=== PATIENT | male | born 1945 | race Caucasian/White ===

== ENCOUNTER 2018-12-12 13:52 | Inpatient (IN) ==
--- NOTE | 2018-12-12 14:03 | Emergency Department Note ---
Back Pain HPI - General Chief Complaint: Back Pain/Injury Stated Complaint: Back Pain; Recent back surgery. Time Seen by Provider: 12/12/18 14:01 Source: patient, family Limitations: no limitations - History of Present Illness HPI Narrative: This pleasant gentleman is on chronic medication for anticoagulation due to a [employer] Guido's valve that was somewhere 10+ years ago. He also had an aortic aneurysm that was repaired. This was at [facility]. Recently had a hematoma develop and was in [facility] for evacuation of the hematoma 13 days ago. Yesterday had an INR of 2.4 with the goal being 2.5-3.5 but he has had increasing pain in the past 2 days. He is now having to take hydrocodone 10 mg every 2 hours were usually he had been 4-6 and even 6 to 8 hours in between. Pain goes into the groin as well as some paresthesias into the thighs but the left is much worse than the right with burning. He was able to dorsiflex his ankles previously but has had decrease in ability and dragging of foot on the left. He has been unable to walk. He was seen by [facility] today and an MRI showed a return of a significant/quite large epidural hematoma. He is being scheduled for intervention this evening and is being admitted under the hospitalist. Reported to me is that this has already transpired as far as excepting this patient and fresh frozen plasma and other orders are already being created and in place. REVIEW OF SYSTEMS: Unable to obtain much except through his who reports that he has not had fevers, chills, sweats, chest pain, shortness of breath, nausea or vomiting but he has been quite out of it due to the narcotics and needing to be used so much more often. - Related Data Home Medications Medication Instructions Recorded Confirmed Cortef PO 05/20/15 10/07/17 Coumadin PO 05/20/15 10/07/17 fenofibrate nanocrystallized 145 145 mg PO QDAY 05/20/15 10/07/17 mg tablet fludrocortisone 0.1 mg tablet 0.1 mg PO QDAY 05/20/15 10/07/17 hydrocodone 10 mg-acetaminophen 1 tab PO TID 05/20/15 10/07/17 325 mg tablet levothyroxine 150 mcg tablet 150 mcg PO QDAY tab 05/20/15 10/07/17 lisinopril 10 1 tab PO QDAY 05/20/15 10/07/17 mg-hydrochlorothiazide 12.5 mg tablet simvastatin 80 mg tablet 40 mg PO QDAY tab 05/20/15 10/07/17 hydrocortisone PO 10/06/16 10/07/17 Allergies Allergy/AdvReac Type Severity Reaction Status Date / Time Amoxicillin [From Augmentin] Allergy Unknown unknown Verified 05/21/15 08:23 clavulanic acid Allergy Unknown unknown Verified 05/21/15 08:23 [From Augmentin] escitalopram [From Lexapro] Allergy Unknown unknown Verified 05/21/15 08:23 Past Medical History - Social History smoking status: Never smoker Physical Exam Limitations: no limitations General appearance: sleepy, other (Resting peacefully but with the left thigh and knee bent.) Head: atraumatic, normocephalic Eye: Present: EOMI Neck: Present: trachea midline. Absent: lymphadenopathy, thyromegaly Chest: Present: symmetric chest wall rise Respiratory: Present: normal lung sounds bilaterally. Absent: respiratory distress, wheezes, stridor, accessory muscle use, prolonged expiratory phase Cardiovascular: Present: regular rate, normal rhythm, other (Fairly loud click compatible with [employer]. Guido's for the S2.). Absent: systolic murmur, diastolic murmur Abdominal: Present: soft. Absent: distention, tenderness, guarding, rebound, rigidity, organomegaly, mass Extremities: Absent: pedal edema, pretibial edema, calf tenderness Neurological: Present: CN II-XII intact, other (Is arousable when spoken to her touch but easily falls back asleep.) Psychiatric: Present: flat affect, serious, other (Sleepy.) Skin: Present: warm, dry Course Vital Signs Temperature 98.3 F 12/12/18 13:53 Pulse Rate 89 12/12/18 13:53 Respiratory Rate 12/12/18 13:53 Blood Pressure 181/103 12/12/18 13:53 Pulse Oximetry (%) 96 12/12/18 13:53 Temperature 98.3 F 12/12/18 13:53 Pulse Rate 88 12/12/18 14:13 Respiratory Rate 22 12/12/18 13:53 Blood Pressure 171/91 12/12/18 14:13 Pulse Oximetry (%) 94 12/12/18 14:13 Disposition 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 Disposition: Xfer As Inpt ([facility]) Condition: Fair Referrals: Ghazal Stokes ARNP [Primary Care Provider] -
[2018-12-12] MEDS ORDERED: 0.9 % SODIUM CHLORIDE 250 ML IV SCH ×2 (14:30→15:57)
[2018-12-12 15:08] LABS: POC INR 2.3 (0.9-1.2); POC Pro Time 26.8 sec (11.9-14.5)
[2018-12-12] MEDS ORDERED: PHYTONADIONE 1 MG in 0.9 % SODIUM CHLORIDE 50 ML IV ONE (15:08)
[2018-12-12 15:10] LABS: Basophils # (Auto) 0 K/mcL (0.0-0.3); Basophils % (Auto) 0.1 % (0.0-2.0); Eosinophils # (Auto) 0.2 K/mcL (0.0-0.7); Eosinophils % (Auto) 2.5 % (0.0-7.0); Granulocytes % (Auto) 81.4 % (38.0-78.0); Hematocrit 33.4 % (41.0-55.0); Hemoglobin 11.3 g/dL (13.5-16.5); Lymphocytes # (Auto) 0.8 K/mcL (1.5-4.8); Lymphocytes % (Auto) 8.7 % (15.5-49.0); Mean Cell Volume 91.1 fL (80.0-100.0); Mean Corpuscular HGB Conc 33.8 g/dL (31.0-36.0); Mean Platelet Volume 6.9 fL (7.4-10.4); Monocytes # (Auto) 0.7 K/mcL (0.1-0.9); Monocytes % (Auto) 7.3 % (1.0-12.0); Platelet Count 405 K/mcL (140-440); RBC 3.67 M/mcL (4.50-5.90); Red Cell Distribution Width 14.1 % (11.5-14.5)
[2018-12-12] MEDS ORDERED: HYDROCORTISONE SOD SUCC 100 MG VIAL IV SCH (15:25)
[2018-12-12 15:26] LABS: INR 2.2 (0.9-1.1); Prothrombin Time 24.4 sec (11.9-14.5)
[2018-12-12 15:27] LABS: ALT/SGPT 26 U/l (0-40); AST/SGOT 23 U/l (0-37); Albumin 3.7 gm/dL (3.2-5.2); Albumin/Globulin Ratio 1.3 (1.0-2.3); Alkaline Phosphatase 76 U/L (39-117); Bilirubin,Total 0.3 mg/dL (0.0-1.0); Blood Urea Nitrogen 13 mg/dl (8-23); Calcium 9.1 mg/dl (8.6-10.4); Carbon Dioxide 26 mmol/L (22-30); Chloride 100 mmol/L (96-108); Globulin 2.8 gm/dL (2.2-3.7); Glomerular Filtration Rate 74; Glucose 107 mg/dL (70-105); Potassium 3.4 mmol/L (3.3-5.1); Sodium 137 mmol/L (133-145)
--- NOTE | 2018-12-12 15:35 | XRay Report ---
CLINICAL INFORMATION: preop COMPARISON: 04/06/2007 FINDINGS: Mild cardiomegaly is unchanged. Aortic valve prostheses in stable satisfactory position. Mediastinum and pulmonary vessels are otherwise normal. Lungs are clear. No effusions. IMPRESSION: No acute disease Interpreted and Authenticated by: Bay Cummins 12/12/18
--- NOTE | 2018-12-12 15:36 | Internal Med History&Physical ---
Medical - H&P: [facility] Patient information: Note initiated : 12/12/18 at 3:30 pm Service Date, if different from initiated Date: [] Patient: Khari De Jesus a 73 y/o M admitted on for Back Pain; Recent back surgery.. Chief Complaint: [] History of present illness: Mr. De Jesus is a 73 year old M with h/o chr back pain, Aortic valve replacement, prosthetic [employer] Guido valve, 2006, presents to the ER for evaluation of back pain and weakness in his lower extremities. The patient is on chronic Coumadin anticoagulation for his prosthetic aortic valve, as per the patient's the goal INR is 2.5-3.5. The patient because of his chronic back issues had a spinal steroid injection done 3 weeks ago, patient developed a complication with hematoma formation. The patient needed surgery which was done 2 weeks ago. The patient had surgical drain placed, and was discharged on Lovenox and Coumadin at the time of discharge from the previous hospital stay. The patient's removed the drain 1 week out, as per the instructions by the surgeon. The surgical site was bleeding, heavily according to the . They went and had the patient evaluated in the emergency room, the patient was given a couple of stitches at the site of the drain. The patient was on Lovenox and also started taking Coumadin at the Coumadin clinic. His last INR yesterday was 2.3. Over the last 3 days to 4 days the patient has had significant pain in his back which has worsened, and he also has lost his ability to move, he has significant weakness in both his lower extremities. The patient was therefore evaluated by the surgeon, I believe an MRI was done at the office, and spinal hematoma noted. The patient was then sent here to the emergency room. Patient had received Ativan for the MRI and therefore was not able to participate much in the history process much of the history from chart review as well as talking to the patient's . The plan is for the patient to be taken to surgery today. The patient did not take Coumadin today. Labs were sent from the emergency room, [id number] INR was 2.3, patient will get 2 units of FFP, 1 mg IV vitamin K. ROS unobtainable: due to mental status (drowsy, denies any chest pain.) Medical - H&P: PMH Medical history: chr back pain Aortic valve replacement, St Guido valve prosthetic GERD HLD HTN Addisons Disease Hypothyroidism Psoriatric arthropathy [place] anemia Surgical history: aortic valve replacement Family history: reviewed and not pertinent Social history: lives with no drug use reported no tobacco use reported Medical - H&P: Meds Home Medications Medication Instructions Recorded Confirmed Type Cortef PO 05/20/15 10/07/17 History Coumadin PO 05/20/15 10/07/17 History fenofibrate nanocrystallized 145 145 mg PO QDAY 05/20/15 10/07/17 History mg tablet fludrocortisone 0.1 mg tablet 0.1 mg PO QDAY 05/20/15 10/07/17 History hydrocodone 10 mg-acetaminophen 1 tab PO TID 05/20/15 10/07/17 History 325 mg tablet levothyroxine 150 mcg tablet 150 mcg PO QDAY tab 05/20/15 10/07/17 History lisinopril 10 1 tab PO QDAY 05/20/15 10/07/17 History mg-hydrochlorothiazide 12.5 mg tablet simvastatin 80 mg tablet 40 mg PO QDAY tab 05/20/15 10/07/17 History hydrocortisone PO 10/06/16 10/07/17 History Allergies Allergy/AdvReac Type Severity Reaction Status Date / Time Amoxicillin [From Augmentin] Allergy Unknown unknown Verified 05/21/15 08:23 clavulanic acid Allergy Unknown unknown Verified 05/21/15 08:23 [From Augmentin] escitalopram [From Lexapro] Allergy Unknown unknown Verified 05/21/15 08:23 Medical - H&P: Exam - Constitutional Vitals: Temp Pulse Resp BP Pulse Ox 98.3 F 101 H 22 149/96 93 12/12/18 13:53 12/12/18 15:03 12/12/18 13:53 12/12/18 15:03 12/12/18 15:03 Exam: Constitutional; Afebrile, cooperative, drowsy, not in distress. Eyes- No icterus, , No periorbital swelling Ears- Ext ear normal, hearing normal to conversation. Neck- Midline trachea, supple Respiratory system: Air Entry equal on both sides, No crackles or wheezing, no rhonchi. CVS- Rate rhythm regular, S1,S2 heard, no gallop, no rub. 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 Medical - H&P: Reslt - Labs CBC & Chem 7: 12/12/18 14:31 12/12/18 14:31 Labs: Short CBC 12/12/18 Range/Units 14:31 WBC 9.0 (4.5-11.0) K/mcL Hgb 11.3 L (13.5-16.5) g/dL Hct 33.4 L (41.0-55.0) % Plt Count 405 (140-440) K/mcL BMP 12/12/18 14:31 Sodium 137 Potassium 3.4 Chloride 100 Carbon Dioxide 26 BUN 13 Creatinine 1.0 Glucose 107 H Calcium 9.1 Liver Function 12/12/18 Range/Units 14:31 Total Bilirubin 0.3 (0.0-1.0) mg/dL AST 23 (0-37) U/l ALT 26 (0-40) U/l Alkaline Phosphatase 76 (39-117) U/L Albumin 3.7 (3.2-5.2) gm/dL Medical - H&P: A/P - Narrative A/P Narrative: A/P Spinal Hematoma with neurological complications -Dr Hunt is aware of the patient, he will operate this evening. Anticoagulation with Coumadin for Prosthetic Aortic Valve -Pt on Coumadin, no asa, St guido prosthetic valve, placed 2006, -hold Coumadin, INR 2.3, 2 units ffp to be given, vitamin k 1 mg IV for longer lasting reversal -I reviewed the plan of care with Dr Garcia the patients primary senior care provider with regards to anticoagulation management -we will resume patient on Coumadin only and no bridging would be needed post op once cleared by surgery. The risk benefit ratio at this time is clearly in favor to avoid bridging, given that this is aortic valve prosthetic. The risk of CVA or other embolic phenomenon is still present, which was reviewed with the patients . Preop risk assessment -RCRI 0 -moderate risk due to valvular heart disease, -active as per , no chest pain reported, recent surgery without any issues -Echo done 2016 shows normal LV size and thickness, normal lv function. -X ray no acute findings, ECG no significant change. [place] Disease -based on the med list, pt on hydrocortisone and florinef, will start on IV cortisone for now, resume home medication on post op day 2 Hypothyroidism -resume home dose once verified Hypertension/Hyperlipidemia -lisinopril-hctz, statin and fibrate, will resume post op, once dose verified. DVT -scd for now Full code
[2018-12-12 15:39] LABS: Appearance,Urine CLEAR; Bacteria,Urine 0 /hpf (0); Bilirubin,Urine NEG (NEG); Color,Urine YELLOW; Culture Indicated,Urine NO; Glucose,Urine (UA) NEGATIVE (NEG); Ketones,Urine NEG (NEG); Leukocyte Esterase,Urine NEG /uL (NEG); Mucus,Urine FEW /hpf (0); Nitrate,Urine NEG (NEG); Protein,Urine NEG (NEG); Specific Gravity,Urine 1.009 (1.000-1.035); Urine Blood >=1.0 mg/dL (<0.03); Urine RBC 49 /hpf (0-1); Urine Squamous Epithelial Cell < 1 /hpf (0-4); Urine WBC 2 /hpf (0-4); Urobilinogen,Urine NEG (NEG)
[2018-12-12] MEDS ORDERED: HYDROmorphone 2 MG/ML VIAL IV PRN (15:57)
[2018-12-12] MEDS ORDERED: ONDANSETRON 4 MG/2 ML VIAL IV PRN ×2 (15:57→19:02)
[2018-12-12] MEDS ORDERED: ALBUTEROL SULFATE 2.5 MG/3 ML NEBULIZER NEB PRN (15:57)
[2018-12-12] MEDS ORDERED: NALOXONE HCL 0.4 MG/ML VIAL IV PRN ×2 (15:57→19:02)
[2018-12-12] MEDS ORDERED: ceFAZolin 2 GM in DEXTROSE 5% IN WATER 50 ML IV SCH (17:00)
--- NOTE | 2018-12-12 17:11 | Brief Operative Note ---
Date of procedure: 12/12/18 Pre-op diagnosis: epidural hematoma Post-op diagnosis: same Procedure: evacuation of lumbar hematoma Grafts/Implants: No Anesthesia: GETA Complications: none Surgeon: Michele Hunt Harp Maker: Marina Sanchez Estimated blood loss (cc): 50 Condition: stable Disposition: PACU
[2018-12-12] MEDS ORDERED: ONDANSETRON 4 MG/2 ML VIAL IV ONE (17:40)
[2018-12-12] MEDS ORDERED: DEXAMETHASONE 10 MG/ML VIAL IV ONE (17:40)
[2018-12-12] MEDS ORDERED: LIDOCAINE HCL/PF 100 MG/5 ML SYRINGE IV ONE (17:40)
[2018-12-12] MEDS ORDERED: PROPOFOL 200 MG/20 ML VIAL IV ONE (17:40)
[2018-12-12] MEDS ORDERED: MIDAZOLAM 2 MG/2 ML VIAL IV ONE (17:40)
[2018-12-12] MEDS ORDERED: TRANEXAMIC ACID 1,000 MG/10 ML VIAL IV ONE (17:40)
[2018-12-12] MEDS ORDERED: fentaNYL 250 MCG/5 ML VIAL IV ONE (17:40)
[2018-12-12] MEDS ORDERED: THROMBIN (BOVINE) 5,000 UNIT VIAL TOPICAL ONE (18:29)
[2018-12-12] MEDS ORDERED: GELATIN SPONGE,ABSORBABLE 1 EACH SPONGE TOPICAL ONE (18:29)
[2018-12-12] MEDS ORDERED: GELATIN SPONGE,ABSORBABLE 1 GM POWDER TOPICAL ONE (18:29)
[2018-12-12] MEDS: HYDROCORTISONE SOD SUCC 100 MG VIAL IV SCH (18:45)
[2018-12-12] MEDS ORDERED: PROMETHAZINE 25 MG/ML VIAL IV PRN (19:02)
[2018-12-12] MEDS ORDERED: diphenhydrAMINE 50 MG/ML VIAL IV PRN (19:02)
[2018-12-12] MEDS ORDERED: METHOCARBAMOL 1,000 MG/10 ML VIAL IV PRN (19:02)
[2018-12-12] MEDS ORDERED: IPRATROPIUM/ALBUTEROL 3 ML AMPUL.NEB NEB PRN (19:02)
[2018-12-12] MEDS ORDERED: ACETAMINOPHEN 1,000 MG/100 ML BOTTLE IV ONE (19:02)
[2018-12-12] MEDS ORDERED: FLUMAZENIL 0.1 MG/ML ML IV PRN (19:02)
[2018-12-12] MEDS ORDERED: MEPERIDINE 25 MG/ML SYRINGE IV PRN (19:02)
[2018-12-12] MEDS ORDERED: LACTATED RINGERS 250 ML IV PRN (19:02)
[2018-12-12] MEDS ORDERED: fentaNYL 100 MCG/2 ML VIAL IV PRN (19:02)
--- NOTE | 2018-12-12 19:14 | XRay Report ---
CLINICAL INFORMATION: Localization COMPARISON: None. FINDINGS: Metallic forceps overlie the L1-2 facet at the L1-2 disc level. The more inferior instrument overlies the L2-3 facets at the L2-3 disc level IMPRESSION: Localization film Interpreted and Authenticated by: Bay Cummins 12/12/18
[2018-12-12] MEDS ORDERED: LACTATED RINGERS 1,000 ML IV SCH (19:15)
[2018-12-12] MEDS ORDERED: BENZOCAINE/MENTHOL 1 LOZENGE PO PRN (19:37)
[2018-12-12] MEDS ORDERED: hydrALAZINE 20 MG/ML VIAL IV ONE (20:00)
[2018-12-12] MEDS ORDERED: hydrALAZINE 20 MG/ML VIAL ONE (20:03)
[2018-12-12] MEDS: LACTATED RINGERS 1,000 ML IV SCH (21:12)
[2018-12-12] MEDS: ceFAZolin 1 GM VIAL IV SCH (23:08)
[2018-12-12] MEDS: 0.9 % SODIUM CHLORIDE 10 ML SYRINGE IV SCH ×2 (23:09→23:28)
[2018-12-13] MEDS: SENNOSIDES 1 TABLET PO SCH ×2 (00:35→22:12)
[2018-12-13] MEDS: HYDROCORTISONE SOD SUCC 100 MG VIAL IV SCH ×5 (00:36→22:12)
[2018-12-13 05:42] LABS: Basophils # (Auto) 0 K/mcL (0.0-0.3); Basophils % (Auto) 0 % (0.0-2.0); Eosinophils # (Auto) 0 K/mcL (0.0-0.7); Eosinophils % (Auto) 0 % (0.0-7.0); Granulocytes % (Auto) 92.9 % (38.0-78.0); Hematocrit 33.5 % (41.0-55.0); Hemoglobin 11.3 g/dL (13.5-16.5); Lymphocytes # (Auto) 0.4 K/mcL (1.5-4.8); Lymphocytes % (Auto) 5.7 % (15.5-49.0); Mean Cell Volume 91.7 fL (80.0-100.0); Mean Corpuscular HGB Conc 33.7 g/dL (31.0-36.0); Mean Platelet Volume 7.1 fL (7.4-10.4); Monocytes # (Auto) 0.1 K/mcL (0.1-0.9); Monocytes % (Auto) 1.4 % (1.0-12.0); Platelet Count 455 K/mcL (140-440); RBC 3.65 M/mcL (4.50-5.90); Red Cell Distribution Width 14.3 % (11.5-14.5); WBC 7.6 K/mcL (4.5-11.0)
[2018-12-13 06:07] LABS: ALT/SGPT 23 U/l (0-40); AST/SGOT 20 U/l (0-37); Albumin/Globulin Ratio 1.4 (1.0-2.3); Alkaline Phosphatase 79 U/L (39-117); Bilirubin,Direct < 0.2 mg/dL (0.0-0.3); Bilirubin,Total 0.3 mg/dL (0.0-1.0); Blood Urea Nitrogen 13 mg/dl (8-23); Calcium 9.1 mg/dl (8.6-10.4); Carbon Dioxide 28 mmol/L (22-30); Chloride 103 mmol/L (96-108); Globulin 2.9 gm/dL (2.2-3.7); Glomerular Filtration Rate 88; Glucose 134 mg/dL (70-105); Lactate Dehydrogenase 302 U/L (94-250); Phosphorous 3.5 mg/dL (2.7-4.5); Potassium 3.8 mmol/L (3.3-5.1); Sodium 143 mmol/L (133-145); Triglycerides 128 mg/dl (<150); Uric Acid 5.5 mg/dL (2.5-8.0)
[2018-12-13 06:08] LABS: INR 1.3 (0.9-1.1); Prothrombin Time 16.4 sec (11.9-14.5)
[2018-12-13] MEDS: 0.9 % SODIUM CHLORIDE 10 ML SYRINGE IV SCH ×6 (06:13→22:14)
[2018-12-13] MEDS: LACTATED RINGERS 1,000 ML IV SCH ×2 (06:51→16:42)
[2018-12-13] MEDS: ceFAZolin 1 GM VIAL IV SCH (06:52)
--- NOTE | 2018-12-13 06:52 | Operative Note ---
DATE OF OPERATION: 12/12/2018 PREOPERATIVE DIAGNOSIS: Massive epidural hematoma. POSTOPERATIVE DIAGNOSIS: Massive epidural hematoma. OPERATION PROPOSED: Evacuation of hematoma T11 through L4. OPERATION PERFORMED: Evacuation of hematoma T11 through L4. OPERATING SURGEON: Devan Hunt MD PEER COUNSELOR: Marina Sanchez PA-C. The PA's assistance was required for the safe and efficient completion of the entire case. This provider's expertise and technical skill were required throughout the case. The PA assisted with preoperative coordination, intraoperative retraction, wound closure, dressing and splint application, as well as postoperative documentation and care coordination. INDICATIONS: This is a gentleman who has had a previous decompression and evacuation of hematoma. However, he was started on Lovenox and has now a massive epidural hematoma. OPERATION IN DETAIL: Informed consent had been obtained. He was taken to the operating room and provided with appropriate anesthetic and prophylactic antibiotic. He was carefully positioned. His back was prepped sterilely. I ellipsed down his previous incision. I then extended the incision on up to T11. I removed the inferior portion of the lamina of 11, superior portion of 12 similarly at 12-1. There, I also irrigated and removed a large amount of very consolidated clot significantly compressing the epidural space. The wounds were irrigated extensively. We closed over two deep drains. After hemostasis was obtained we the wounds were closed with a #1 Vicryl interrupted fashion, 2-0 Vicryl inverted deep dermal, and a running subcuticular. The procedure was tolerated well. No complications. Estimated blood loss is 200 mL. GDD:tyler Job ID: [id number] Doc ID: [id number] Michele Hunt MD
--- NOTE | 2018-12-13 07:05 | Orthopedic Progress Note ---
Subjective Patient information: Note initiated : 12/13/18 at 7:01 am Service Date, if different from initiated Date: [] Patient: Khari De Jesus 73 y/o M admitted on 12/12/18 for Back Pain; Recent back surgery.. Chief Complaint: [S/P extensive evacuation of epidural hematoma] Patient's low back pain and lower extremity pain is overall improved compared to pre-operatively. He denies any new onset lower extremity paresthesias/weakness. Principal diagnosis: Epidural hematoma Objective Vital signs: Vital Signs Temp Pulse Pulse Resp BP BP Pulse Ox 12/13/18 03:33 98.4 F 94 H 20 142/81 96 12/12/18 23:36 97.9 F 107 H 20 140/84 96 12/12/18 22:37 95 H 18 95 12/12/18 22:36 95 H 18 12/12/18 22:35 105 H 142/84 98 12/12/18 22:06 102 H 20 112/69 98 12/12/18 21:36 102 H 114/65 89 L 12/12/18 21:21 108 H 130/71 89 L 12/12/18 21:06 102 H 120/66 92 12/12/18 20:50 102 H 131/72 94 12/12/18 20:36 98.4 F 98 H 20 129/73 93 12/12/18 20:25 97.8 F 90 15 138/66 95 12/12/18 20:10 98.3 F 86 14 143/79 98 12/12/18 19:55 98.2 F 80 14 175/82 100 12/12/18 19:50 86 18 168/91 100 12/12/18 19:45 75 15 140/72 100 12/12/18 19:40 97.7 F 76 15 147/75 100 12/12/18 16:38 180/90 12/12/18 16:00 100.5 F H 90 16 184/96 90 12/12/18 15:31 99 H 148/94 95 12/12/18 15:03 101 H 149/96 93 12/12/18 14:31 92 H 149/96 94 12/12/18 14:13 88 171/91 94 12/12/18 13:53 98.3 F 89 22 181/103 96 Intake and Output 12/12/18 12/13/1812/13/19 21:59 05:59 13:59 Intake Total 2283.1 300 965 Output Total 1800 745 Balance 483.1 -445 965 Intake: IV 150.1 965 Lactated Ringers 1,000 ml @ 100 965 mls/hr IV .[facility] Rx#: [id number] Aquamephyton 1 mg In Sodium 50.1 Chloride 0.9% 50 ml @ 50 mls/hr IV ONCE ONE Rx#:[id number] Oral 300 Blood Product 633 IV - Manual Only 1500 Output: Drainage 45 ANDREW Drain #1 30 ANDREW Drain #2 15 Urine Catheter Amount 550 Void Amount 1250 700 Other: Urine Appearance Clear Clear Urine Color Pale Straw Urine Odor Normal Normal Weight 157 lb 8 oz Intake & Output: Intake & Output 12/12/18 12/13/18 12/13/18 21:59 05:59 13:59 Intake Total 2283.1 300 965 Output Total 1800 745 Balance 483.1 -445 965 Weight 157 lb 8 oz Intake: IV 150.1 965 Lactated Ringers 1,000 ml @ 100 965 mls/hr IV .Q10H [facility] Rx#: [id number] Aquamephyton 1 mg In Sodium 50.1 Chloride 0.9% 50 ml @ 50 mls/hr IV ONCE ONE Rx#:[id number] Oral 300 Blood Product 633 IV - Manual Only 1500 Output: Drainage 45 ANDREW Drain #1 30 ANDREW Drain #2 15 Urine Catheter Amount 550 Void Amount 1250 700 Other: Urine Appearance Clear Clear Urine Color Pale Straw Urine Odor Normal Normal Incision: Yes healing, Yes clean and dry Incision clean and dry: Yes Dressing: Yes clean, Yes dry, Yes intact Weight bearing status: as tolerated Neurological exam IM: Yes motor sensory intact, Yes neurovascular intact Extremities exam IM: Yes normal inspection, Yes Foot pink and warm, Yes neurovascular intact - Labs CBC & BMP: 12/13/18 04:43 12/13/18 04:43 Labs: Orthopedic Labs 12/13/18 12/12/18 12/12/18 04:43 15:00 14:32 POC PT 26.8 H PT 16.4 H POC INR 2.3 H INR 1.3 H APTT 48 H 12/12/18 14:32 POC PT PT 24.4 H POC INR INR 2.2 H APTT 12/13/18 12/13/18 12/12/18 04:43 04:43 14:31 Hgb TNP 11.3 L 11.3 L Hct 33.5 L 33.4 L Assessment and Plan (1) Epidural hematoma Likely discharge to home tomorrow. D/c drain tomorrow pending output. Monitor urine residuals for bladder function. Ambulate/stand with PT. Status: Acute
--- NOTE | 2018-12-13 12:06 | Internal Med Progress Note ---
Medical - PN: Subj Patient information: Note initiated : 12/13/18 at 12:04 pm Service Date, if different from initiated Date: [] Patient: Khari De Jesus a 73 y/o M admitted on 12/12/18 for Back Pain; Recent back surgery.. Chief Complaint: [] Interval history: Mr. De Jesus is a 73 year old M with h/o chr back pain, Aortic valve replacement, prosthetic [place] valve, 2006, presents to the ER for evaluation of back pain and weakness in his lower extremities. The patient is on chronic Coumadin anticoagulation for his prosthetic aortic valve, as per the patient's the goal INR is 2.5-3.5. The patient because of his chronic back issues had a spinal steroid injection done 3 weeks ago, patient developed a complication with hematoma formation. The patient needed surgery which was done 2 weeks ago. The patient had surgical drain placed, and was discharged on Lovenox and Coumadin at the time of discharge from the previous hospital stay. The patient's removed the drain 1 week out, as per the instructions by the surgeon. The surgical site was bleeding, heavily according to the . They went and had the patient evaluated in the emergency room, the patient was given a couple of stitches at the site of the drain. The patient was on Lovenox and also started taking Coumadin at the Coumadin clinic. His last INR yesterday was 2.3. Over the last 3 days to 4 days the patient has had significant pain in his back which has worsened, and he also has lost his ability to move, he has significant weakness in both his lower extremities. The patient was therefore evaluated by the surgeon, I believe an MRI was done at the office, and spinal hematoma noted. The patient was then sent here to the emergency room. Patient had received Ativan for the MRI and therefore was not able to participate much in the history process much of the history from chart review as well as talking to the patient's . The plan is for the patient to be taken to surgery today. The patient did not take Coumadin today. Labs were sent from the emergency room, [id number] INR was 2.3, patient will get 2 units of FFP, 1 mg IV vitamin K. 12/13 Pt seen examined, s/p surgery, back pain improved he is moving his legs, mckeon is out right leg is 5/5, left leg is 3/5, Pt has chr low sensation on the left leg Pertinent ROS: Denies headache, dizziness Denies chest pain, palpitations Denies cough or shortness of breath Denies abdominal pain, nausea or vomiting. - Constitutional Vitals: Vital Signs Temp Pulse Resp BP Pulse Ox 98.8 F 88 16 110/63 96 12/13/18 12:00 12/13/18 12:00 12/13/18 12:00 12/13/18 12:00 12/13/18 12:00 Period Temp Pulse Resp BP Sys/Corona Pulse Ox Last 24 Hr 97.7 F-100.5 F 75-108 14-22 110-184/63-103 89-100 Intake and Output 12/12/18 12/13/18 12/13/18 21:59 05:59 13:59 Intake Total 2283.1 300 1965 Output Total 1800 745 425 Balance 483.1 -445 1540 Weight 157 lb 8 oz Intake & Output: Intake & Output 12/12/18 12/13/18 12/13/18 21:59 05:59 13:59 Intake Total 2283.1 300 1965 Output Total 1800 745 425 Balance 483.1 -445 1540 Weight 157 lb 8 oz Intake: IV 150.1 965 Lactated Ringers 1,000 ml @ 100 965 mls/hr IV .Q10H [facility] Rx#: [id number] Aquamephyton 1 mg In Sodium 50.1 Chloride 0.9% 50 ml @ 50 mls/hr IV ONCE ONE Rx#:[id number] Oral 300 1000 Blood Product 633 IV - Manual Only 1500 Output: Drainage 45 25 ANDREW Drain #1 30 20 ANDREW Drain #2 15 5 Urine Catheter Amount 550 400 Void Amount 1250 700 Other: Meal Breakfast Percent of Meal Consumed 100% Feeding Ability Independent Urine Appearance Clear Clear Clear Urine Color Pale Straw Bright Yellow Urine Odor Normal Normal Normal Exam: Constitutional; Afebrile, cooperative, alert, not in distress. Respiratory system: Air Entry equal on both sides, No crackles or wheezing, no rhonchi. CVS- Rate rhythm regular, S1,S2 heard, no gallop, no rub. Abdomen- Soft nontender abdomen, no organomegaly, no tenderness, no guarding or rigidity, [employer]- AOOx3, moving all extremities, left leg 3/5, right leg is 5/5, reflex absent knee and ankle, but pt notes chr not present Medical - PN: Obj Da - Labs CBC & Chem 7: 12/13/18 04:43 12/13/18 04:43 Labs: Abnormal Lab Results 12/13/18 12/13/18 12/13/18 04:43 04:43 04:43 RBC 3.65 L Hgb 11.3 L Hct 33.5 L Plt Count 455 H MPV 7.1 L Gran % 92.9 H Lymph % (Auto) 5.7 L Lymph # (Auto) 0.4 L POC PT PT 16.4 H POC INR INR 1.3 H APTT Glucose 134 H Lactate Dehydrogenase 302 H Urine Occult Blood Urine RBC 12/12/18 12/12/18 12/12/18 15:00 14:56 14:32 RBC Hgb Hct Plt Count MPV Gran % Lymph % (Auto) Lymph # (Auto) POC PT 26.8 H PT POC INR 2.3 H INR APTT 48 H Glucose Lactate Dehydrogenase Urine Occult Blood >=1.0 A Urine RBC 49 H 12/12/18 12/12/18 12/12/18 14:32 14:31 14:31 RBC 3.67 L Hgb 11.3 L Hct 33.4 L Plt Count MPV 6.9 L Gran % 81.4 H Lymph % (Auto) 8.7 L Lymph # (Auto) 0.8 L POC PT PT 24.4 H POC INR INR 2.2 H APTT Glucose 107 H Lactate Dehydrogenase Urine Occult Blood Urine RBC Meds: Medications Acetaminophen (Tylenol) 650 mg PO Q6HP PRN PRN Reason: PAIN/FEVER > 101 Albuterol Sulfate (Ventolin) 2.5 mg NEB Q2HP PRN PRN Reason: Shortness Of Breath Hydrocortisone Sodium Succinate (Solu-Cortef) 50 mg IV Q6 [facility] Last Admin: 12/13/18 06:12 Dose: 50 mg Documented by: Hydromorphone HCl (Dilaudid) 0.5 mg IV Q2HP PRN PRN Reason: PAIN LEVEL > 6 Last Admin: 12/13/18 06:11 Dose: 0.5 mg Documented by: Lactated Ringer's (Lactated Ringers) 1,000 mls @ 100 mls/hr IV .Q10H [facility] Last Admin: 12/13/18 06:51 Dose: 100 mls/hr Documented by: Naloxone HCl (Narcan) 0.1 mg IV Q2MIN PRN PRN Reason: Opiate Reversal Ondansetron HCl (Zofran) 4 mg IV Q6HP PRN PRN Reason: Nausea And Vomiting Oxycodone HCl (Roxicodone) 5 mg PO Q4HP PRN PRN Reason: PAIN LEVEL 3-6 Senna (Senokot) 2 tab PO HS [facility] Last Admin: 12/13/18 00:35 Dose: Not Given Documented by: Sodium Chloride (Saline Flush) 10 ml IV Q8 [facility] Last Admin: 12/13/18 06:13 Dose: 10 ml Documented by: Sodium Chloride (Saline Flush) 10 ml IV Q8 [facility] Last Admin: 12/13/18 07:13 Dose: Not Given Documented by: Throat Lozenges (Cepacol) 1 lozenge PO PRN PRN PRN Reason: Sore Throat Medical - PN: A/P - Time Spent With Patient Total time spent is greater than 50% in coordination of care (as documented) at patient's floor/unit and/or counseling patient: - Narrative A/P Narrative: A/P Spinal Hematoma with neurological complications - s/p surgery post op day 1, -monitor neurological function, bladder function as per spine surgery Anticoagulation with Coumadin for Prosthetic Aortic Valve -Pt INR is low at 1.3 -Reviewed plan with Dr Garcia, he noted it would be ok to hold coumadin upto 3-4 days if needed, no bridge needed -will await surgery clearance before resume Coumadin. [place] Disease -based on the med list, pt on hydrocortisone and florinef, will start on IV cortisone for now, resume home medication on post op day 2 Hypothyroidism -resume home dose Hypertension/Hyperlipidemia -lisinopril-hctz, statin and fibrate, will resume home dosing DVT -scd for now Full code Medical - PN: Qual - Stroke Symptom Onset Unknown: No - VTE Deep Vein Thrombosis/Pulmonary Embolism Present on Admission: No
[2018-12-13] MEDS: oxyCODONE HCL 5 MG TABLET PO PRN ×2 (16:42→22:12)
[2018-12-14 05:19] LABS: Basophils # (Auto) 0 K/mcL (0.0-0.3); Basophils % (Auto) 0 % (0.0-2.0); Eosinophils # (Auto) 0 K/mcL (0.0-0.7); Eosinophils % (Auto) 0 % (0.0-7.0); Granulocytes % (Auto) 87.6 % (38.0-78.0); Hematocrit 28.6 % (41.0-55.0); Hemoglobin 9.5 g/dL (13.5-16.5); Lymphocytes # (Auto) 0.7 K/mcL (1.5-4.8); Lymphocytes % (Auto) 7.4 % (15.5-49.0); Mean Cell Volume 92.2 fL (80.0-100.0); Mean Corpuscular HGB Conc 33.1 g/dL (31.0-36.0); Mean Platelet Volume 7.4 fL (7.4-10.4); Monocytes # (Auto) 0.5 K/mcL (0.1-0.9); Platelet Count 381 K/mcL (140-440); Red Cell Distribution Width 14.1 % (11.5-14.5); WBC 9.8 K/mcL (4.5-11.0)
[2018-12-14 05:41] LABS: ALT/SGPT 13 U/l (0-40); AST/SGOT 14 U/l (0-37); Albumin 3.3 gm/dL (3.2-5.2); Albumin/Globulin Ratio 1.4 (1.0-2.3); Alkaline Phosphatase 66 U/L (39-117); Bilirubin,Direct < 0.2 mg/dL (0.0-0.3); Bilirubin,Total 0.3 mg/dL (0.0-1.0); Blood Urea Nitrogen 17 mg/dl (8-23); Calcium 8.9 mg/dl (8.6-10.4); Carbon Dioxide 28 mmol/L (22-30); Chloride 105 mmol/L (96-108); Globulin 2.3 gm/dL (2.2-3.7); Glomerular Filtration Rate 84; Glucose 130 mg/dL (70-105); Lactate Dehydrogenase 222 U/L (94-250); Magnesium 2.1 mg/dL (1.6-2.5); Potassium 3.8 mmol/L (3.3-5.1); Sodium 143 mmol/L (133-145); Triglycerides 78 mg/dl (<150); Uric Acid 4.9 mg/dL (2.5-8.0)
[2018-12-14] MEDS: LACTATED RINGERS 1,000 ML IV SCH ×3 (05:47→23:58)
[2018-12-14 05:53] LABS: INR 1.2 (0.9-1.1)
[2018-12-14] MEDS: oxyCODONE HCL 5 MG TABLET PO PRN ×4 (06:45→22:39)
[2018-12-14] MEDS: 0.9 % SODIUM CHLORIDE 10 ML SYRINGE IV SCH ×6 (06:46→22:40)
[2018-12-14] MEDS: LEVOTHYROXINE 150 MCG TABLET PO SCH (06:46)
--- NOTE | 2018-12-14 07:27 | Orthopedic Progress Note ---
Subjective Patient information: Note initiated : 12/14/18 at 7:25 am Service Date, if different from initiated Date: [] Patient: Khari De Jesus 73 y/o M admitted on 12/12/18 for Back Pain; Recent back surgery.. Chief Complaint: [S/P evacuation of thoracolumbar hematoma] Patient reports his pain is improved significantly compared to pre-operatively. He does report lower extremity paresthesias and weakness but is overall improved. He has ambulated some but requires assistance. Principal diagnosis: Epidural hematoma Objective Vital signs: Vital Signs Temp Pulse Resp BP BP Pulse Ox 12/14/18 06:58 98.8 F 74 20 158/81 96 12/14/18 04:12 98.3 F 63 20 129/72 96 12/13/18 23:54 98.6 F 69 20 120/72 96 12/13/18 19:43 98.7 F 80 20 120/70 94 12/13/18 17:49 78 12/13/18 16:09 98.5 F 78 14 120/70 97 12/13/18 14:00 78 12/13/18 12:00 98.8 F 88 16 110/63 96 12/13/18 10:00 95 H 12/13/18 08:00 98.1 F 95 H 20 151/91 96 Intake and Output 12/13/18 12/14/18 12/14/18 21:59 05:59 13:59 Intake Total 1875 600 Output Total 1265 570 300 Balance 610 30 -300 Intake: IV 985 Lactated Ringers 1,000 ml @ 100 985 mls/hr IV .Q10H [facility] Rx#: [id number] Oral 890 600 Output: Drainage 10 20 ANDREW Drain #1 10 15 ANDREW Drain #2 0 5 Void Amount 1255 550 300 Other: Meal Dinner Percent of Meal Consumed 100% Feeding Ability Independent Urine Appearance Clear Clear Clear Urine Color Pale Bright Yellow Straw Urine Odor Normal Normal Normal Weight 155 lb 8 oz Intake & Output: Intake & Output 12/13/18 12/14/18 12/14/18 21:59 05:59 13:59 Intake Total 1875 600 Output Total 1265 570 300 Balance 610 30 -300 Weight 155 lb 8 oz Intake: IV 985 Lactated Ringers 1,000 ml @ 100 985 mls/hr IV .Q10H [facility] Rx#: [id number] Oral 890 600 Output: Drainage 10 20 ANDREW Drain #1 10 15 ANDREW Drain #2 0 5 Void Amount 1255 550 300 Other: Meal Dinner Percent of Meal Consumed 100% Feeding Ability Independent Urine Appearance Clear Clear Clear Urine Color Pale Bright Yellow Straw Urine Odor Normal Normal Normal Incision: Yes healing, Yes clean and dry Incision clean and dry: Yes Dressing: Yes clean, Yes dry, Yes intact Weight bearing status: as tolerated Neurological exam IM: Yes oriented X3, Yes motor sensory intact, Yes neurovascular intact Extremities exam IM: Yes normal inspection, Yes Foot pink and warm, Yes neurovascular intact - Labs CBC & BMP: 12/14/18 04:06 12/14/18 04:06 Labs: Orthopedic Labs 12/14/18 12/13/18 12/12/18 04:06 04:43 15:00 POC PT 26.8 H PT 15.0 H 16.4 H POC INR 2.3 H INR 1.2 H 1.3 H APTT 12/12/18 12/12/18 14:32 14:32 POC PT PT 24.4 H POC INR INR 2.2 H APTT 48 H 12/14/18 12/14/18 12/13/18 04:06 04:06 04:43 Hgb TNP 9.5 L TNP Hct 28.6 L 12/13/18 12/12/18 04:43 14:31 Hgb 11.3 L 11.3 L Hct 33.5 L 33.4 L Assessment and Plan (1) Epidural hematoma Ambulate with PT today. D/c drain today. Likely discharge to home with home health tomorrow vs SNF. Continue to hold anticoagulation. Status: Acute
[2018-12-14] MEDS ORDERED: MAGNESIUM HYDROXIDE 30 ML ORAL.SUSP PO PRN (07:59)
[2018-12-14] MEDS ORDERED: BISACODYL 10 MG SUPP.RECT PR PRN (07:59)
[2018-12-14] MEDS: HYDROCORTISONE 10 MG TABLET PO SCH (08:16)
[2018-12-14] MEDS: amLODIPine 5 MG TABLET PO SCH (08:16)
[2018-12-14] MEDS: FLUDROCORTISONE 0.1 MG TABLET PO SCH (08:16)
[2018-12-14] MEDS: DOCUSATE SODIUM 100 MG CAPSULE PO SCH ×2 (08:17→22:39)
--- NOTE | 2018-12-14 10:54 | Internal Med Progress Note ---
Medical - PN: Subj Patient information: Note initiated : 12/14/18 at 10:52 am Service Date, if different from initiated Date: [] Patient: Khari De Jesus a 73 y/o M admitted on 12/12/18 for Back Pain; Recent back surgery.. Chief Complaint: [] Interval history: Mr. De Jesus is a 73 year old M with h/o chr back pain, Aortic valve replacement, prosthetic [place] valve, 2006, presents to the ER for evaluation of back pain and weakness in his lower extremities. The patient is on chronic Coumadin anticoagulation for his prosthetic aortic valve, as per the patient's the goal INR is 2.5-3.5. The patient because of his chronic back issues had a spinal steroid injection done 3 weeks ago, patient developed a complication with hematoma formation. The patient needed surgery which was done 2 weeks ago. The patient had surgical drain placed, and was discharged on Lovenox and Coumadin at the time of discharge from the previous hospital stay. The patient's removed the drain 1 week out, as per the instructions by the surgeon. The surgical site was bleeding, heavily according to the . They went and had the patient evaluated in the emergency room, the patient was given a couple of stitches at the site of the drain. The patient was on Lovenox and also started taking Coumadin at the Coumadin clinic. His last INR yesterday was 2.3. Over the last 3 days to 4 days the patient has had significant pain in his back which has worsened, and he also has lost his ability to move, he has significant weakness in both his lower extremities. The patient was therefore evaluated by the surgeon, I believe an MRI was done at the office, and spinal hematoma noted. The patient was then sent here to the emergency room. Patient had received Ativan for the MRI and therefore was not able to participate much in the history process much of the history from chart review as well as talking to the patient's . The plan is for the patient to be taken to surgery today. The patient did not take Coumadin today. Labs were sent from the emergency room, [id number] INR was 2.3, patient will get 2 units of FFP, 1 mg IV vitamin K. 12/13 Pt seen examined, s/p surgery, back pain improved he is moving his legs, mckeon is out right leg is 5/5, left leg is 3/5, Pt has chr low sensation on the left leg 12/14 Patient doing well, has no postvoid residual as per nurse No new complaints or concerns Labs are stable hemoglobin slightly low today we will just monitor INR is 1.2 Patient has improved strength in his left lower extremity, 4 / 5 today Pertinent ROS: Denies headache, dizziness Denies chest pain, palpitations Denies cough or shortness of breath Denies abdominal pain, nausea or vomiting. - Constitutional Vitals: Vital Signs Temp Pulse Resp BP Pulse Ox 98.8 F 74 20 158/81 96 12/14/18 06:58 12/14/18 06:58 12/14/18 06:58 12/14/18 06:58 12/14/18 06:58 Period Temp Pulse Resp BP Sys/Corona Pulse Ox Last 24 Hr 98.3 F-98.8 F 63-88 14-20 110-158/63-81 94-97 Intake and Output 12/13/18 12/14/18 12/14/18 21:59 05:59 13:59 Intake Total 1875 600 247 Output Total 1688 294 4307 Balance 610 30 -953 Weight 155 lb 8 oz Intake & Output: Intake & Output 12/13/18 12/14/18 12/14/18 21:59 05:59 13:59 Intake Total 1875 600 247 Output Total 6526 542 3265 Balance 610 30 -953 Weight 155 lb 8 oz Intake: IV 985 Lactated Ringers 1,000 ml @ 100 985 mls/hr IV .Q10H [facility] Rx#: [id number] Oral 890 600 240 Input, Drain Irrigation Amount 7 ANDREW Drain #1 7 Output: Drainage 10 20 0 ANDREW Drain #1 10 15 ANDREW Drain #2 0 5 0 Void Amount 1325 114 9765 Other: Meal Dinner Breakfast Percent of Meal Consumed 100% 100% Feeding Ability Independent Urine Appearance Clear Clear Clear Urine Color Pale Bright Yellow Straw Urine Odor Normal Normal Normal Exam: Constitutional; Afebrile, cooperative, alert, not in distress. RS breath sounds equal on both sides, No crackles or wheezing, no rhonchi. CVS- Rate rhythm regular, S1,S2 heard, no gallop, no rub. Abdomen- Soft nontender abdomen, no organomegaly, no tenderness, no guarding or rigidity, [employer]- AOOx3, moving all extremities, lower extremity, right leg 5/5, left 4/5, improved from yesterday on left side. Medical - PN: Obj Da - Labs CBC & Chem 7: 12/14/18 04:06 12/14/18 04:06 Labs: Abnormal Lab Results 12/14/18 12/14/18 12/14/18 04:06 04:06 04:06 RBC 3.10 L Hgb 9.5 L Hct 28.6 L Plt Count MPV Gran % 87.6 H Lymph % (Auto) 7.4 L Gran # 8.6 H Lymph # (Auto) 0.7 L POC PT PT 15.0 H POC INR INR 1.2 H APTT Glucose 130 H Lactate Dehydrogenase Total Protein 5.6 L Urine Occult Blood Urine RBC 12/13/18 12/13/18 12/13/18 04:43 04:43 04:43 RBC 3.65 L Hgb 11.3 L Hct 33.5 L Plt Count 455 H MPV 7.1 L Gran % 92.9 H Lymph % (Auto) 5.7 L Gran # Lymph # (Auto) 0.4 L POC PT PT 16.4 H POC INR INR 1.3 H APTT Glucose 134 H Lactate Dehydrogenase 302 H Total Protein Urine Occult Blood Urine RBC 12/12/18 12/12/18 12/12/18 15:00 14:56 14:32 RBC Hgb Hct Plt Count MPV Gran % Lymph % (Auto) Gran # Lymph # (Auto) POC PT 26.8 H PT POC INR 2.3 H INR APTT 48 H Glucose Lactate Dehydrogenase Total Protein Urine Occult Blood >=1.0 A Urine RBC 49 H 12/12/18 12/12/18 12/12/18 14:32 14:31 14:31 RBC 3.67 L Hgb 11.3 L Hct 33.4 L Plt Count MPV 6.9 L Gran % 81.4 H Lymph % (Auto) 8.7 L Gran # Lymph # (Auto) 0.8 L POC PT PT 24.4 H POC INR INR 2.2 H APTT Glucose 107 H Lactate Dehydrogenase Total Protein Urine Occult Blood Urine RBC Meds: Medications Acetaminophen (Tylenol) 650 mg PO Q6HP PRN PRN Reason: PAIN/FEVER > 101 Albuterol Sulfate (Ventolin) 2.5 mg NEB Q2HP PRN PRN Reason: Shortness Of Breath Amlodipine Besylate (Norvasc) 5 mg PO DAILY [facility] Last Admin: 12/14/18 08:16 Dose: 5 mg Documented by: Bisacodyl (Dulcolax) 10 mg [place] DAILYP PRN PRN Reason: Constipation Docusate Sodium (Colace) 100 mg PO BID [facility] Last Admin: 12/14/18 08:17 Dose: 100 mg Documented by: Fludrocortisone Acetate (Florinef) 0.1 mg PO QDAY [facility] Last Admin: 12/14/18 08:16 Dose: 0.1 mg Documented by: [facility]) [facility] Last Admin: 12/14/18 08:16 Dose: 20 mg Documented by: Hydrocortisone (Cortef) 10 mg PO DAILY@1430 [facility] Hydromorphone HCl (Dilaudid) 0.5 mg IV Q2HP PRN PRN Reason: PAIN LEVEL > 6 Last Admin: 12/13/18 06:11 Dose: 0.5 mg Documented by: Lactated Ringer's (Lactated Ringers) 1,000 mls @ 100 mls/hr IV .Q10H [facility] Last Admin: 12/14/18 05:47 Dose: Not Given Documented by: Levothyroxine Sodium (Synthroid) 150 [facility] Last Admin: 12/14/18 06:46 Dose: 150 mcg Documented by: Magnesium Hydroxide (Milk Of Magnesia) 30 ml PO DAILYP PRN PRN Reason: Constipation Last Admin: 12/14/18 08:17 Dose: 30 ml Documented by: Naloxone HCl (Narcan) 0.1 mg IV Q2MIN PRN PRN Reason: Opiate Reversal Ondansetron HCl (Zofran) 4 mg IV Q6HP PRN PRN Reason: Nausea And Vomiting Oxycodone HCl (Roxicodone) 5 mg PO Q4HP PRN PRN Reason: PAIN LEVEL 3-6 Last Admin: 12/14/18 06:45 Dose: 5 mg Documented by: Senna (Senokot) 2 tab PO [facility] Last Admin: 12/13/18 22:12 Dose: 2 tab Documented by: Sodium Chloride (Saline Flush) 10 ml IV Q8 [facility] Last Admin: 12/14/18 06:46 Dose: 10 ml Documented by: Sodium Chloride (Saline Flush) 10 ml IV Q8 [facility] Last Admin: 12/14/18 06:46 Dose: Not Given Documented by: Throat Lozenges (Cepacol) 1 lozenge PO PRN PRN PRN Reason: Sore Throat Medical - PN: A/P - Time Spent With Patient Total time spent is greater than 50% in coordination of care (as documented) at patient's floor/unit and/or counseling patient: - Narrative A/P Narrative: A/P Spinal Hematoma with neurological complications - s/p surgery post op day 2, -monitor neurological function, bladder function as per spine surgery Anticoagulation with Coumadin for Prosthetic Aortic Valve -Pt INR is low at 1.2 -Reviewed plan with Dr Garcia, he noted it would be ok to hold coumadin upto 3-4 days if needed, no bridge needed -will await surgery clearance before resume Coumadin. [place] Disease -home dose of cortisone resumed Hypothyroidism -resume home dose Hypertension/Hyperlipidemia -lisinopril-hctz, statin and fibrate, will resume home dosing DVT -scd for now Full code Anticipate d/c to home vs snf in AM Medical - PN: Qual - Stroke Symptom Onset Unknown: No - VTE Deep Vein Thrombosis/Pulmonary Embolism Present on Admission: No
[2018-12-14] MEDS ORDERED: HYDROCORTISONE 10 MG TABLET PO SCH (14:30)
[2018-12-14] MEDS: SENNOSIDES 1 TABLET PO SCH (22:39)
[2018-12-15] MEDS: oxyCODONE HCL 5 MG TABLET PO PRN ×3 (04:52→17:29)
[2018-12-15] MEDS: 0.9 % SODIUM CHLORIDE 10 ML SYRINGE IV SCH ×7 (04:54→21:20)
[2018-12-15 05:43] LABS: Basophils # (Auto) 0 K/mcL (0.0-0.3); Basophils % (Auto) 0.4 % (0.0-2.0); Eosinophils # (Auto) 0.1 K/mcL (0.0-0.7); Eosinophils % (Auto) 1.3 % (0.0-7.0); Hematocrit 27.7 % (41.0-55.0); Hemoglobin 9.1 g/dL (13.5-16.5); Lymphocytes # (Auto) 1.2 K/mcL (1.5-4.8); Lymphocytes % (Auto) 18.9 % (15.5-49.0); Mean Cell Volume 92.5 fL (80.0-100.0); Mean Corpuscular HGB Conc 32.9 g/dL (31.0-36.0); Mean Platelet Volume 7.2 fL (7.4-10.4); Monocytes # (Auto) 0.6 K/mcL (0.1-0.9); Monocytes % (Auto) 9.4 % (1.0-12.0); Platelet Count 414 K/mcL (140-440); RBC 2.99 M/mcL (4.50-5.90); Red Cell Distribution Width 14.5 % (11.5-14.5); WBC 6.4 K/mcL (4.5-11.0)
[2018-12-15 05:44] LABS: INR 1.2 (0.9-1.1); Prothrombin Time 14.7 sec (11.9-14.5)
[2018-12-15 06:00] LABS: ALT/SGPT 11 U/l (0-40); AST/SGOT 13 U/l (0-37); Albumin 3.2 gm/dL (3.2-5.2); Albumin/Globulin Ratio 1.4 (1.0-2.3); Alkaline Phosphatase 63 U/L (39-117); Bilirubin,Direct < 0.2 mg/dL (0.0-0.3); Bilirubin,Total 0.3 mg/dL (0.0-1.0); Blood Urea Nitrogen 17 mg/dl (8-23); Calcium 8.7 mg/dl (8.6-10.4); Carbon Dioxide 29 mmol/L (22-30); Chloride 104 mmol/L (96-108); Globulin 2.3 gm/dL (2.2-3.7); Glomerular Filtration Rate 88; Glucose 83 mg/dL (70-105); Lactate Dehydrogenase 213 U/L (94-250); Magnesium 2.2 mg/dL (1.6-2.5); Phosphorous 2.9 mg/dL (2.7-4.5); Potassium 3.6 mmol/L (3.3-5.1); Sodium 140 mmol/L (133-145); Triglycerides 101 mg/dl (<150); Uric Acid 5.1 mg/dL (2.5-8.0)
--- NOTE | 2018-12-15 07:23 | Discharge Summary ---
Providers - Providers Patient information: Note initiated : 12/15/18 at 7:19 am Service Date, if different from initiated Date: [] Patient: Khari De Jesus 73 y/o M admitted on 12/12/18 for Back Pain; Recent back surgery.. Chief Complaint: [S/p evacuation of hematoma] Mr. De Jesus is doing well and is improved compared to pre-operatively. He does require assistance with ambulation and is a fall risk. He has vague paresthesias in his lower extremities bilaterally. Otherwise, no complaints. Date of admission: 12/12/18 Discharge date: 12/15/18 Hospitalization Hospital course: Postoperatively, the patient was returned to the [facility] where he was maintained on prophylactic antibiotics and provided routine pain management. He ambulated daily with PT. At the time of discharge, he is doing well and tolerating all medications well. He is discharged to follow-up with me in approximately 2 weeks. He will call with any questions or concerns whatsoever. Discharge diagnosis: S/p evacuation of thoracolumbar epidural hematoma Reason for admission: The patient was admitted for operative tx of an epidural hematoma. Procedures: The patient was taken to the operating room on the date of admission where he underwent an evacuation of a thoracolumbar hematoma. The procedure was tolerated well with no complications. Complications: none Exam - Exam Incision healing: Yes Incision draining: No Incision red: No Incision swollen: No Incision inflamed: No Clean and dry: Yes Weight bearing status: as tolerated (with walker and assistance) Ortho Discharge - Spine - Patient Instructions Discharge Diet: Regular Diet Activity: ambulate with assistive device, weight bearing as tolerated Spine Protocol: Limit bending and stooping. No heavy lifting. Wear brace/collar at all times except when showering and sleeping. Dressing Care: May shower in 2 days (May remove dressing prior to showers and replace with dry dressing after showers.) Additional Dressing Instructions: May Shower 48 hours post-operative and replace with dry dressing after shower. - Problem Maintenance (1) Epidural hematoma Status: Acute - Follow Up Plan Follow Up Appointments: Ghazal Stokes ARNP [Primary Care Provider] - Nino Culp PA-C [Physician Instrumentation Designer] - Disposition: Xfer SNF Prognosis: Fair Rehab Potential: Fair I certify that the patient requires SNF services: Yes (needs assistance with ambulation) Overall status at discharge: patient is back to baseline - Orders For Discharge Prescriptions: Methocarbamol [Robaxin-750] 750 mg PO Q8HP PRN #40 tab PRN Reason: Muscle Spasm oxyCODONE HCL [Roxicodone] 5 mg PO Q4HP PRN #50 tab PRN Reason: Pain Pending Studies Resuscitation Status Full Code Diet Regular Diet Start TueDec 13 629 Amlodipine Besylate (Norvasc) 5 mg PO DAILY [facility] Last Admin: 12/14/18 08:16 Dose: 5 mg Documented by: [facility] Bisacodyl (Dulcolax) 10 mg DC DAILYP PRN PRN Reason: Constipation Last Admin: 12/14/18 15:03 Dose: 10 mg Documented by: [facility] Docusate Sodium (Colace) 100 mg PO BID [facility] Last Admin: 12/14/18 22:39 Dose: 100 mg Documented by: Admin: 12/14/18 08:17 Dose: 100 mg Documented by: [facility] Fludrocortisone Acetate (Florinef) 0.1 mg PO QDAY [facility] Last Admin: 12/14/18 08:16 Dose: 0.1 mg Documented by: [facility] Hydrocortisone (Cortef) 20 mg PO QAC [facility] Last Admin: 12/14/18 08:16 Dose: 20 mg Documented by: [facility] Hydrocortisone (Cortef) 10 mg PO DAILY@1430 [facility] Last Admin: 12/14/18 14:14 Dose: 10 mg Documented by: H24 Hydromorphone HCl (Dilaudid) 0.5 mg IV Q2HP PRN PRN Reason: PAIN LEVEL > 6 Last Admin: 12/13/18 06:11 Dose: 0.5 mg Documented by: TARAN Lactated Ringer's (Lactated Ringers) 1,000 mls @ 100 mls/hr IV .Q10H [facility] Last Admin: 12/14/18 23:58 Dose: Not Given Documented by: Admin: 12/14/18 11:21 Dose: Not Given Documented by: Admin: 12/14/18 05:47 Dose: Not Given Documented by: Admin: 12/13/18 16:42 Dose: 100 mls/hr Documented by: Infusion: 12/13/18 16:42 Dose: 100 mls/hr Documented by: Admin: 12/13/18 06:51 Dose: 100 mls/hr Documented by: Infusion: 12/13/18 06:51 Dose: 100 mls/hr Documented by: Admin: 12/12/18 21:12 Dose: 100 mls/hr Documented by: TARAN Levothyroxine Sodium (Synthroid) 150 mcg PO QAMAC [facility] Last Admin: 12/14/18 06:46 Dose: 150 mcg Documented by: LUCIANAArabella Magnesium Hydroxide (Milk Of Magnesia) 30 ml PO DAILYP PRN PRN Reason: Constipation Last Admin: 12/14/18 08:17 Dose: 30 ml Documented by: BARRY Oxycodone HCl (Roxicodone) 5 mg PO Q4HP PRN PRN Reason: PAIN LEVEL 3-6 Last Admin: 12/15/18 04:52 Dose: 5 mg Documented by: Admin: 12/14/18 22:39 Dose: 5 mg Documented by: Admin: 12/14/18 17:28 Dose: 5 mg Documented by: Admin: 12/14/18 13:24 Dose: 5 mg Documented by: Admin: 12/14/18 06:45 Dose: 5 mg Documented by: Admin: 12/13/18 22:12 Dose: 5 mg Documented by: Admin: 12/13/18 16:42 Dose: 5 mg Documented by: RUTHIE Senbilly (Senokot) 2 tab PO HS [facility] Last Admin: 12/14/18 22:39 Dose: 2 tab Documented by: Admin: 12/13/18 22:12 Dose: 2 tab Documented by: Admin: 12/13/18 00:35 Dose: Not Given Documented by: TARAN Sodium Chloride (Saline Flush) 10 ml IV Q8 [facility] Last Admin: 12/15/18 04:55 Dose: 10 ml Documented by: Admin: 12/14/18 22:40 Dose: 10 ml Documented by: Admin: 12/14/18 14:15 Dose: 10 ml Documented by: Admin: 12/14/18 06:46 Dose: 10 ml Documented by: Admin: 12/13/18 22:13 Dose: 10 ml Documented by: Admin: 12/13/18 13:01 Dose: Not Given Documented by: Admin: 12/13/18 06:13 Dose: 10 ml Documented by: Admin: 12/12/18 23:09 Dose: 10 ml Documented by: TARAN Sodium Chloride (Saline Flush) 10 ml IV Q8 TAMY Last Admin: 12/15/18 04:55 Dose: Not Given Documented by: Admin: 12/15/18 04:54 Dose: Not Given Documented by: Admin: 12/14/18 14:15 Dose: Not Given Documented by: Admin: 12/14/18 06:46 Dose: Not Given Documented by: LUCIANAArabella Admin: 12/13/18 22:14 Dose: Not Given Documented by: Admin: 12/13/18 14:15 Dose: 10 ml Documented by: Admin: 12/13/18 07:13 Dose: Not Given Documented by: Admin: 12/12/18 23:28 Dose: Not Given Documented by: TARAN Shift Summary 12/15/18 06:36 Shift Summary by Alyssa Roman Pt is A&O x 4. VSS on RA but low grade temp. IV to Right AC & LFA, saline- locked. Up with FWW, GB, & SBA. Back brace in room to be used when ambulating. Roxicodone given x 2 for pain. Shadow drainage to back dressing. 2 ANDREW drains with very minimal output. Slightly less dorsiflexion in left foot compared to right. Initialized on 12/15/18 06:36 - END OF NOTE
[2018-12-15] MEDS: LEVOTHYROXINE 150 MCG TABLET PO SCH (07:28)
--- NOTE | 2018-12-15 07:38 | Orthopedic Progress Note ---
Subjective Patient information: Note initiated : 12/15/18 at 7:36 am Service Date, if different from initiated Date: [] Patient: Khari De Jesus 73 y/o M admitted on 12/12/18 for Back Pain; Recent back surgery.. Chief Complaint: [S/p thoracolumbar epidural hematoma evacuation] Mr. De Jesus is progressing as expected and reports his overall pain is improved significantly compared to preoperatively. He does have some vague lower extremity paresthesias but otherwise has no complaints. He requires assistance with ambulation. Principal diagnosis: Epidural hematoma Objective Vital signs: Vital Signs Temp Pulse Resp BP BP Pulse Ox 12/15/18 06:46 97.8 F 16 119/73 94 12/15/18 04:00 98.3 F 68 20 138/75 96 12/15/18 00:51 99.5 F H 87 20 119/74 97 12/14/18 19:02 99.0 F 86 20 117/64 94 12/14/18 15:22 98.3 F 16 128/74 95 12/14/18 11:18 98 F 71 20 139/80 96 Intake and Output 12/14/18 12/15/18 12/15/18 21:59 05:59 13:59 Intake Total 960 500 Output Total 3 500 Balance 957 0 Intake: Oral 960 500 Output: Drainage 3 0 ANDREW Drain #1 2 0 ANDREW Drain #2 1 0 Void Amount 500 Other: Meal Dinner Percent of Meal Consumed 100% Urine Appearance Clear Urine Color Dark Yellow # Voids 1 Weight 158 lb Intake & Output: Intake & Output 12/14/18 12/15/18 12/15/18 21:59 05:59 13:59 Intake Total 960 500 Output Total 3 500 Balance 957 0 Weight 158 lb Intake: Oral 960 500 Output: Drainage 3 0 ANDREW Drain #1 2 0 ANDREW Drain #2 1 0 Void Amount 500 Other: Meal Dinner Percent of Meal Consumed 100% Urine Appearance Clear Urine Color Dark Yellow # Voids 1 Incision: Yes healing, Yes clean and dry Incision clean and dry: Yes Dressing: Yes clean, Yes dry, Yes intact Weight bearing status: as tolerated Neurological exam IM: Yes oriented X3, Yes motor sensory intact, Yes leatha rovascular intact Extremities exam IM: Yes normal inspection, Yes Foot pink and warm, Yes neurovascular intact - Labs CBC & BMP: 12/15/18 03:44 06/07/19 03:44 Labs: Orthopedic Labs 12/15/18 12/14/18 12/13/18 03:44 04:06 04:43 POC PT PT 14.7 H 15.0 H 16.4 H POC INR INR 1.2 H 1.2 H 1.3 H APTT 12/12/18 12/12/18 12/12/18 15:00 14:32 14:32 POC PT 26.8 H PT 24.4 H POC INR 2.3 H INR 2.2 H APTT 48 H 12/15/18 12/15/18 12/14/18 03:44 03:44 04:06 Hgb TNP 9.1 L TNP Hct 27.7 L 12/14/18 12/13/18 12/13/18 04:06 04:43 04:43 Hgb 9.5 L TNP 11.3 L Hct 28.6 L 33.5 L 12/12/18 14:31 Hgb 11.3 L Hct 33.4 L Assessment and Plan (1) Epidural hematoma D/c drain today. Discharge to SNF today. Restart Warfarin and monitor PT/INR. Verbal discharge instructions were provided to the patient and his . Status: Acute
[2018-12-15] MEDS ORDERED: COUMADIN 5 MG PO SCH (09:00)
[2018-12-15] MEDS: amLODIPine 5 MG TABLET PO SCH (09:07)
[2018-12-15] MEDS: DOCUSATE SODIUM 100 MG CAPSULE PO SCH ×2 (09:07→21:18)
[2018-12-15] MEDS: FLUDROCORTISONE 0.1 MG TABLET PO SCH (09:14)
[2018-12-15] MEDS: HYDROCORTISONE 10 MG TABLET PO SCH (09:14)
[2018-12-15] MEDS ORDERED: MAGNESIUM CITRATE 300 ML ORAL.SOL PO ONE (09:33)
[2018-12-15] MEDS: GABAPENTIN 100 MG CAPSULE PO SCH ×3 (09:57→21:18)
[2018-12-15] MEDS: LIDOCAINE 5 GM CREAM.TOP TOPICAL SCH (10:04)
[2018-12-15] MEDS ORDERED: ACETAMINOPHEN 1,000 MG/100 ML BOTTLE IV ONE (10:12)
--- NOTE | 2018-12-15 10:55 | Internal Med Progress Note ---
Medical - PN: Subj Patient information: Note initiated : 12/15/18 at 10:53 am Service Date, if different from initiated Date: [] Patient: Khari De Jesus a 73 y/o M admitted on 12/12/18 for Back Pain; Recent back surgery.. Chief Complaint: [] Interval history: Mr. De Jesus is a 73 year old M with h/o chr back pain, Aortic valve replacement, prosthetic [place] valve, 2006, presents to the ER for evaluation of back pain and weakness in his lower extremities. The patient is on chronic Coumadin anticoagulation for his prosthetic aortic valve, as per the patient's the goal INR is 2.5-3.5. The patient because of his chronic back issues had a spinal steroid injection done 3 weeks ago, patient developed a complication with hematoma formation. The patient needed surgery which was done 2 weeks ago. The patient had surgical drain placed, and was discharged on Lovenox and Coumadin at the time of discharge from the previous hospital stay. The patient's removed the drain 1 week out, as per the instructions by the surgeon. The surgical site was bleeding, heavily according to the . They went and had the patient evaluated in the emergency room, the patient was given a couple of stitches at the site of the drain. The patient was on Lovenox and also started taking Coumadin at the Coumadin clinic. His last INR yesterday was 2.3. Over the last 3 days to 4 days the patient has had significant pain in his back which has worsened, and he also has lost his ability to move, he has significant weakness in both his lower extremities. The patient was therefore evaluated by the surgeon, I believe an MRI was done at the office, and spinal hematoma noted. The patient was then sent here to the emergency room. Patient had received Ativan for the MRI and therefore was not able to participate much in the history process much of the history from chart review as well as talking to the patient's . The plan is for the patient to be taken to surgery today. The patient did not take Coumadin today. Labs were sent from the emergency room, [id number] INR was 2.3, patient will get 2 units of FFP, 1 mg IV vitamin K. 12/13 Pt seen examined, s/p surgery, back pain improved he is moving his legs, mckeon is out right leg is 5/5, left leg is 3/5, Pt has chr low sensation on the left leg 12/14 Patient doing well, has no postvoid residual as per nurse No new complaints or concerns Labs are stable hemoglobin slightly low today we will just monitor INR is 1.2 Patient has improved strength in his left lower extremity, 4 / 5 today 12/15 Pt seen examined drain removed, Pt has significant paresthesia both feet, ? similar to previous experiences? strength is 4/5 in both legs, limited by pain. No BM still Given worsening pain in both legs, which appear neuropathic, will start on gabapentin. topical lidocaine. Will hold D/C till pain is a bit better controlled. Reviewed with Dr suarez who will be in today to evaluate the patient. will hold coumadin till tomorrow. Pertinent ROS: Denies headache, dizziness Denies chest pain, palpitations Denies cough or shortness of breath Denies abdominal pain, nausea or vomiting. Reji toe feet pain, burning sensation. - Constitutional Vitals: Vital Signs Temp Pulse Resp BP Pulse Ox 97.8 F 68 16 119/73 94 12/15/18 06:46 12/15/18 04:00 12/15/18 06:46 12/15/18 06:46 12/15/18 06:46 Period Temp Pulse Resp BP Sys/Corona Pulse Ox Last 24 Hr 97.8 F-99.5 F 68-87 16-20 117-139/64-80 94-97 Intake and Output 12/14/18 12/15/18 12/15/18 21:59 05:59 13:59 Intake Total 960 500 Output Total 3 500 Balance 957 0 Weight 158 lb Intake & Output: Intake & Output 12/14/18 12/15/18 12/15/18 21:59 05:59 13:59 Intake Total 960 500 Output Total 3 500 Balance 957 0 Weight 158 lb Intake: Oral 960 500 Output: Drainage 3 0 ANDREW Drain #1 2 0 ANDREW Drain #2 1 0 Void Amount 500 Other: Meal Dinner Percent of Meal Consumed 100% Urine Appearance Clear Urine Color Dark Yellow # Voids 1 Exam: Constitutional; Afebrile, cooperative, alert, not in distress. Respiratory system: Air Entry equal on both sides, No crackles or wheezing, no rhonchi. CVS- Rate rhythm regular, S1,S2 heard, no gallop, no rub. 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 lower extremity strength 4/5, limited by pain it seems, good pulses DP both legs. Medical - PN: Obj Da - Labs CBC & Chem 7: 12/15/18 03:44 12/15/18 03:44 Labs: Abnormal Lab Results 12/15/18 12/15/18 12/15/18 03:44 03:44 03:44 RBC 2.99 L Hgb 9.1 L Hct 27.7 L Plt Count MPV 7.2 L Gran % Lymph % (Auto) Gran # Lymph # (Auto) 1.2 L POC PT PT 14.7 H POC INR INR 1.2 H APTT Anion Gap 7.0 L Glucose Lactate Dehydrogenase Total Protein 5.5 L Urine Occult Blood Urine RBC 12/14/18 12/14/18 12/14/18 04:06 04:06 04:06 RBC 3.10 L Hgb 9.5 L Hct 28.6 L Plt Count MPV Gran % 87.6 H Lymph % (Auto) 7.4 L Gran # 8.6 H Lymph # (Auto) 0.7 L POC PT PT 15.0 H POC INR INR 1.2 H APTT Anion Gap Glucose 130 H Lactate Dehydrogenase Total Protein 5.6 L Urine Occult Blood Urine RBC 12/13/18 12/13/18 12/13/18 04:43 04:43 04:43 RBC 3.65 L Hgb 11.3 L Hct 33.5 L Plt Count 455 H MPV 7.1 L Gran % 92.9 H Lymph % (Auto) 5.7 L Gran # Lymph # (Auto) 0.4 L POC PT PT 16.4 H POC INR INR 1.3 H APTT Anion Gap Glucose 134 H Lactate Dehydrogenase 302 H Total Protein Urine Occult Blood Urine RBC 12/12/18 12/12/18 12/12/18 15:00 14:56 14:32 RBC Hgb Hct Plt Count MPV Gran % Lymph % (Auto) Gran # Lymph # (Auto) POC PT 26.8 H PT POC INR 2.3 H INR APTT 48 H Anion Gap Glucose Lactate Dehydrogenase Total Protein Urine Occult Blood >=1.0 A Urine RBC 49 H 12/12/18 12/12/18 12/12/18 14:32 14:31 14:31 RBC 3.67 L Hgb 11.3 L Hct 33.4 L Plt Count MPV 6.9 L Gran % 81.4 H Lymph % (Auto) 8.7 L Gran # Lymph # (Auto) 0.8 L POC PT PT 24.4 H POC INR INR 2.2 H APTT Anion Gap Glucose 107 H Lactate Dehydrogenase Total Protein Urine Occult Blood Urine RBC Meds: Medications Acetaminophen (Tylenol) 650 mg PO Q6HP PRN PRN Reason: PAIN/FEVER > 101 Albuterol Sulfate (Ventolin) 2.5 mg NEB Q2HP PRN PRN Reason: Shortness Of Breath Amlodipine Besylate (Norvasc) 5 mg PO DAILY [facility] Last Admin: 12/15/18 09:07 Dose: 5 mg Documented by: Bisacodyl (Dulcolax) 10 mg NC DAILYP PRN PRN Reason: Constipation Last Admin: 12/14/18 15:03 Dose: 10 mg Documented by: Docusate Sodium (Colace) 100 mg PO BID [facility] Last Admin: 12/15/18 09:07 Dose: 100 mg Documented by: Fludrocortisone Acetate (Florinef) 0.1 mg PO QDAY [facility] Last Admin: 12/15/18 09:14 Dose: 0.1 mg Documented by: Gabapentin (Neurontin) 100 mg PO Q8 [facility] Last Admin: 12/15/18 09:57 Dose: 100 mg Documented by: Hydrocortisone (Cortef) 20 mg PO [facility] Last Admin: 12/15/18 09:14 Dose: 20 mg Documented by: Hydrocortisone (Cortef) 10 mg PO DAILY@1430 [facility] Last Admin: 12/14/18 14:14 Dose: 10 mg Documented by: Hydromorphone HCl (Dilaudid) 0.5 mg IV Q2HP PRN PRN Reason: PAIN LEVEL > 6 Last Admin: 12/13/18 06:11 Dose: 0.5 mg Documented by: Levothyroxine S[facility] ([facility]throid) [facility] Last Admin: 12/15/18 07:28 Dose: 150 mcg Documented by: Lidocaine (Lmx 4, Anecream) 5 gm TOPICAL DAILY [facility] Last Admin: 12/15/18 10:04 Dose: 5 gm Documented by: Magnesium Hydroxide (Milk Of Magnesia) 30 ml PO DAILYP PRN PRN Reason: Constipation Last Admin: 12/14/18 08:17 Dose: 30 ml Documented by: Naloxone HCl (Narcan) 0.1 mg IV Q2MIN PRN PRN Reason: Opiate Reversal Ondansetron HCl (Zofran) 4 mg IV Q6HP PRN PRN Reason: Nausea And Vomiting Oxycodone HCl (Roxicodone) 5 mg PO Q4HP PRN PRN Reason: PAIN LEVEL 3-6 Last Admin: 12/15/18 09:07 Dose: 5 mg Documented by: Senna (Senokot) 2 tab PO HS [facility] Last Admin: 12/14/18 22:39 Dose: 2 tab Documented by: Sodium Chloride (Saline Flush) 10 ml IV Q8 [facility] Last Admin: 12/15/18 04:55 Dose: 10 ml Documented by: Sodium Chloride (Saline Flush) 10 ml IV Q8 [facility] Last Admin: 12/15/18 04:55 Dose: Not Given Documented by: Throat Lozenges (Cepacol) 1 lozenge PO PRN PRN PRN Reason: Sore Throat Medical - PN: A/P - Time Spent With Patient Total time spent is greater than 50% in coordination of care (as documented) at patient's floor/unit and/or counseling patient: - Narrative A/P Narrative: A/P Spinal Hematoma with neurological complications - s/p surgery post op day 3, -monitor neurological function, -has developed significant paresthesias, not much output from the drain, and it was removed. - Anticoagulation with Coumadin for Prosthetic Aortic Valve -Pt INR is low at 1.2 -Reviewed plan with Dr Garcia, he noted it would be ok to hold Coumadin upto 3-4 days if needed, no bridge needed -will wait another day for coumadin lora given worsening beau. constipation -aggressive bowel regime, mag citrate to be given [place] [facility] -home dose of cortisone resumed Hypothyroidism -resume home dose Hypertension/Hyperlipidemia -lisinopril-hctz, statin and fibrate, home dosing resumed DVT -scd for now Full code Anticipate d/c to snf once pain control is better, hold off for today. Medical - PN: Qual - Stroke Symptom Onset Unknown: No - VTE Deep Vein Thrombosis/Pulmonary Embolism Present on Admission: No
[2018-12-15] MEDS: predniSONE 20 MG TABLET PO SCH (13:16)
[2018-12-15] MEDS: LACTATED RINGERS 1,000 ML IV SCH (14:01)
[2018-12-15] MEDS: ACETAMINOPHEN 325 MG TABLET PO PRN (17:27)
[2018-12-15] MEDS: SENNOSIDES 1 TABLET PO SCH (21:18)
[2018-12-16] MEDS: oxyCODONE HCL 5 MG TABLET PO PRN ×2 (01:08→11:38)
[2018-12-16] MEDS: ACETAMINOPHEN 325 MG TABLET PO PRN ×2 (01:09→11:39)
[2018-12-16] MEDS: 0.9 % SODIUM CHLORIDE 10 ML SYRINGE IV SCH ×2 (05:11)
[2018-12-16] MEDS: GABAPENTIN 100 MG CAPSULE PO SCH (05:11)
[2018-12-16 05:59] LABS: Basophils # (Auto) 0 K/mcL (0.0-0.3); Basophils % (Auto) 0.3 % (0.0-2.0); Eosinophils # (Auto) 0 K/mcL (0.0-0.7); Eosinophils % (Auto) 0 % (0.0-7.0); Hematocrit 31.4 % (41.0-55.0); Hemoglobin 10.5 g/dL (13.5-16.5); Lymphocytes # (Auto) 0.8 K/mcL (1.5-4.8); Lymphocytes % (Auto) 9.5 % (15.5-49.0); Mean Cell Volume 92.4 fL (80.0-100.0); Mean Corpuscular HGB Conc 33.3 g/dL (31.0-36.0); Mean Platelet Volume 7.4 fL (7.4-10.4); Monocytes # (Auto) 0.6 K/mcL (0.1-0.9); Monocytes % (Auto) 7.2 % (1.0-12.0); Platelet Count 472 K/mcL (140-440); Red Cell Distribution Width 14.3 % (11.5-14.5); WBC 8.6 K/mcL (4.5-11.0)
[2018-12-16 06:09] LABS: Prothrombin Time 13.5 sec (11.9-14.5)
[2018-12-16 06:25] LABS: ALT/SGPT 11 U/l (0-40); AST/SGOT 15 U/l (0-37); Albumin 3.5 gm/dL (3.2-5.2); Albumin/Globulin Ratio 1.3 (1.0-2.3); Alkaline Phosphatase 76 U/L (39-117); Bilirubin,Direct < 0.2 mg/dL (0.0-0.3); Bilirubin,Total 0.4 mg/dL (0.0-1.0); Blood Urea Nitrogen 17 mg/dl (8-23); Calcium 8.9 mg/dl (8.6-10.4); Carbon Dioxide 30 mmol/L (22-30); Chloride 103 mmol/L (96-108); Globulin 2.6 gm/dL (2.2-3.7); Glomerular Filtration Rate 88; Glucose 125 mg/dL (70-105); Lactate Dehydrogenase 252 U/L (94-250); Magnesium 2.5 mg/dL (1.6-2.5); Phosphorous 2.9 mg/dL (2.7-4.5); Potassium 3.6 mmol/L (3.3-5.1); Sodium 142 mmol/L (133-145); Triglycerides 92 mg/dl (<150); Uric Acid 4.4 mg/dL (2.5-8.0)
[2018-12-16] MEDS: predniSONE 20 MG TABLET PO SCH (08:12)
[2018-12-16] MEDS: LEVOTHYROXINE 150 MCG TABLET PO SCH (08:12)
[2018-12-16] MEDS: LIDOCAINE 5 GM CREAM.TOP TOPICAL SCH (10:31)
[2018-12-16] MEDS: DOCUSATE SODIUM 100 MG CAPSULE PO SCH (10:31)
[2018-12-16] MEDS: amLODIPine 5 MG TABLET PO SCH (10:31)
[2018-12-16] MEDS ORDERED: WARFARIN 5 MG TABLET PO ONE (11:14)
--- NOTE | 2018-12-16 11:19 | Discharge Summary ---
Medical - DS: Prov Patient information: Note initiated : 12/16/18 at 11:17 am Service Date, if different from initiated Date: [] Patient: Khari De Jesus 73 y/o M admitted on 12/12/18 for Back Pain; Recent back surgery.. Chief Complaint: [] Date of admission: 12/12/18 15:44 Discharge date: 12/16/18 Primary care physician: Ghazal Stokes Admitting clinician: Jeannette De La Cruz Consults: 12/12/18 Consult to Physician [CONS] Stat Comment: Consulting Provider: Michele Hunt Reason For Exam: Physician to Consult Consult to Physician [CONS] Stat Comment: Consulting Provider: Jeannette De La Cruz Reason For Exam: Physician to Consult 12/12/18 14:15 Consult to Physician [CONS] Stat Comment: Consulting Provider: Nino Culp Reason For Exam: Physician to Consult Discharging clinician: Jeannette De La Cruz Medical - DS: Meds - Discharge Medications Prescriptions: Methocarbamol [Robaxin-750] 750 mg PO Q8HP PRN #40 tab PRN Reason: Muscle Spasm oxyCODONE HCL [Roxicodone] 5 mg PO Q4HP PRN #50 tab PRN Reason: Pain predniSONE [Prednisone] 40 mg PO QAMCC #12 tab Active and Home Medications: Home Medications fludrocortisone 0.1 mg tablet 0.1 mg PO QDAY 05/20/15 [History Confirmed 12/13/18 Last Taken 1 Day Ago ~12/12/18] levothyroxine 150 mcg tablet 150 mcg PO QDAY tab 05/20/15 [History Confirmed 12/13/18 Last Taken 2 Days Ago ~12/11/18] Hydrocortisone [Cortef] 10 mg PO DAILY@1430 12/13/18 [History Confirmed 12/13/18 Last Taken Unknown] Hydrocortisone [Cortef] 20 mg PO QAMCC 12/13/18 [History Confirmed 12/13/18 Last Taken Unknown] Warfarin [Coumadin] 5 mg PO SUMOWEFR 12/13/18 [History Confirmed 12/13/18 Last Taken Unknown] amLODIPine [Norvasc] 5 mg PO DAILY 12/13/18 [History Confirmed 12/13/18 Last Taken 2 Days Ago ~12/11/18] Methocarbamol [Robaxin-750] 750 mg PO Q8HP PRN #40 tab 12/15/18 [Rx Last Taken Unknown] oxyCODONE HCL [Roxicodone] 5 mg PO Q4HP PRN #50 tab 12/15/18 [Rx Last Taken Unknown] Medical - DS: Hosp Hospital course: Mr. De Jesus is a 73 year old M with h/o chr back pain, Aortic valve replacement, prosthetic [place] valve, 2006, presents to the ER for evaluation of back pain and weakness in his lower extremities. The patient is on chronic Coumadin anticoagulation for his prosthetic aortic valve, as per the patient's the goal INR is 2.5-3.5. The patient because of his chronic back issues had a spinal steroid injection done 3 weeks ago, patient developed a complication with hematoma formation. The patient needed surgery which was done 2 weeks ago. The patient had surgical drain placed, and was discharged on Lovenox and Coumadin at the time of discharge from the previous hospital stay. The patient's removed the drain 1 week out, as per the instructions by the surgeon. The surgical site was bleeding, heavily according to the . They went and had the patient evaluated in the emergency room, the patient was given a couple of stitches at the site of the drain. The patient was on Lovenox and also started taking Coumadin at the Coumadin clinic. His last INR yesterday was 2.3. Over the last 3 days to 4 days the patient has had significant pain in his back which has worsened, and he also has lost his ability to move, he has significant weakness in both his lower extremities. The patient was therefore evaluated by the surgeon, I believe an MRI was done at the office, and spinal hematoma noted. The patient was then sent here to the emergency room. Patient had received Ativan for the MRI and therefore was not able to participate much in the history process much of the history from chart review as well as talking to the patient's . The plan is for the patient to be taken to surgery today. The patient did not take Coumadin today. Labs were sent from the emergency room, [id number] INR was 2.3, patient will get 2 units of FFP, 1 mg IV vitamin K. 12/13 Pt seen examined, s/p surgery, back pain improved he is moving his legs, mckeon is out right leg is 5/5, left leg is 3/5, Pt has chr low sensation on the left leg 12/14 Patient doing well, has no postvoid residual as per nurse No new complaints or concerns Labs are stable hemoglobin slightly low today we will just monitor INR is 1.2 Patient has improved strength in his left lower extremity, 4 / 5 today 12/15 Pt seen examined drain removed, Pt has significant paresthesia both feet, ? similar to previous experiences? strength is 4/5 in both legs, limited by pain. No BM still Given worsening pain in both legs, which appear neuropathic, will start on gabapentin. topical lidocaine. Will hold D/C till pain is a bit better controlled. Reviewed with Dr hunt who will be in today to evaluate the patient. will hold coumadin till tomorrow. 12/16 Pt seen examined, doing much better responded to prednisone for his shaunna toe pain, gout? will treat for total of 7 days with 40mg po prednisone and then revert back to home dose of hydrocortisone. Start on coumadin, cleared by surgery, check inr in 3 days. Stable for discharge. Discharge diagnosis: spinal compression due to hematoma, gout - Time Spent with Patient Total time spent providing and/or coordinating discharge services: Greater than 30 minutes Medical - DS: Exam - Constitutional Vitals: Vital Signs Temp Pulse Pulse Resp BP BP Pulse Ox 12/16/18 06:38 98.2 F 16 124/72 97 12/16/18 04:00 99 F 86 16 132/80 97 12/16/18 00:00 98.1 F 69 16 131/73 97 12/15/18 19:00 98.6 F 89 16 136/81 92 12/15/18 18:00 82 12/15/18 15:29 99.0 F 16 143/81 97 12/15/18 14:00 82 Intake and Output 12/15/18 12/16/18 12/16/18 21:59 05:59 13:59 Intake Total 820 300 760 Output Total 1250 200 250 Balance -430 100 510 Intake: Oral 820 300 760 Output: Void Amount 1250 200 250 # of times incontinent of urine 0 Other: Meal am cake,egg sandwich, cup of milk Breakfast Percent of Meal Consumed 100% Feeding Ability Independent Independent Urine Appearance Clear Clear Urine Color Bright Yellow Bright Yellow Urine Odor Normal Stool Size Large Stool Color Brown Stool Consistency Soft Formed # Voids 0 # Bowel Movements 0 Weight 166 lb Additional comments: Constitutional; Afebrile, cooperative, alert, not in distress. Respiratory system: Air Entry equal on both sides, No crackles or wheezing, no rhonchi. CVS- Rate rhythm regular, S1,S2 heard, no gallop, no rub. Abdomen- Soft nontender abdomen, no organomegaly, no tenderness, no guarding or rigidity, [employer]- AOOx3, moving all extremities, no gross focal deficit noted. Medical - DS: Data Labs on day of discharge: Labs from last 24 hours 12/16/18 12/16/18 12/16/18 04:33 04:33 04:33 WBC 8.6 RBC 3.40 L Hgb 10.5 L Hct 31.4 L MCV 92.4 MCH 30.8 MCHC 33.3 RDW 14.3 Plt Count 472 H MPV 7.4 Gran % 83.0 H Lymph % (Auto) 9.5 L Kings % (Auto) 7.2 Eos % (Auto) 0 Baso % (Auto) 0.3 Gran # 7.1 Lymph # (Auto) 0.8 L Kings # (Auto) 0.6 Eos # (Auto) 0 Baso # (Auto) 0 PT 13.5 INR 1.0 Sodium 142 Potassium 3.6 Chloride 103 Carbon Dioxide 30 Anion Gap 9.0 BUN 17 Creatinine 0.8 GFR Calculation 88 Glucose 125 H Uric Acid 4.4 Calcium 8.9 Phosphorus 2.9 Magnesium 2.5 Total Bilirubin 0.4 Direct Bilirubin < 0.2 GGT 15 AST 15 ALT 11 Alkaline Phosphatase 76 Lactate Dehydrogenase 252 H Total Protein 6.1 Albumin 3.5 Globulin 2.6 Albumin/Globulin Ratio 1.3 Triglycerides 92 Medical - DS: A/P - Patient/Caregiver Discharge Instructions Activity: as per physical therapy Diet: Regular Diet Additional Instructions: Limit bending and stooping. No heavy lifting. Wear brace at all times except when showering and sleeping. Shower daily then replace a dry dressing over incision site. Ambulate. Please do not take the hydrocortisone for 6 more days, You will take prednisone 40mg daily instead. At the end of the course of prednisone please resume your usual dose of hydrocortisone 20mg AM and 10mg at 1430 Follow up with ortho as advised. Take coumadin 5mg daily, check inr in 3 days, adjust dose of Coumadin based per INR. Go to the ER if fever, chills, worsening back pain or loss of bowel or bladder function or significant weakness in lower extremities. Prescriptions: Methocarbamol [Robaxin-750] 750 mg PO Q8HP PRN #40 tab PRN Reason: Muscle Spasm oxyCODONE HCL [Roxicodone] 5 mg PO Q4HP PRN #50 tab PRN Reason: Pain - Follow up Plan Follow up with: Nino Culp PA-C [Physician Registration Coordinator] - Ghazal Stokes ARNP [Primary Care Provider] - Disposition: Xfer SNF Prognosis: Fair Rehab Potential: Fair I certify that the patient requires SNF services: Yes Overall status at discharge: patient is progressing back to baseline Medical - DS: Qual - VTE Deep Vein Thrombosis/Pulmonary Embolism Present on Admission: No
[2018-12-16] MEDS: FLUDROCORTISONE 0.1 MG TABLET PO SCH (11:32)
== END 2018-12-16 13:10 | DRG 907 ==
LOC: ED 13:52 → MEDSUR 15:44
PROVIDERS: ADMIT Internal Medicine; ATTEND Internal Medicine

== ENCOUNTER 2024-09-13 08:03 | Inpatient (IN) ==
[2024-09-13] MEDS ORDERED: IOPAMIDOL 100 ML BOTTLE IV ONE (08:04)
[2024-09-13 08:31] LABS: Basophils # (Auto) 0.02 K/mcL (0.00-0.30); Basophils % (Auto) 0.2 % (0.0-2.0); Eosinophils # (Auto) 0.05 K/mcL (0.00-0.70); Eosinophils % (Auto) 0.6 % (0.0-7.0); Hematocrit 42.9 % (40.1-51.0); Hemoglobin 14.4 g/dL (13.7-17.5); Lymphocytes # (Auto) 1.94 K/mcL (1.50-4.80); Lymphocytes % (Auto) 24.2 % (15.5-49.0); Mean Cell Volume 93.7 fL (80.0-100.0); Mean Corpuscular HGB Conc 33.6 g/dL (31.0-36.0); Mean Platelet Volume 9.3 fL (8.8-12.5); Monocytes # (Auto) 1.11 K/mcL (0.10-0.90); Monocytes % (Auto) 13.8 % (1.0-12.0); Platelet Count 235 K/mcL (140-440); RBC 4.58 M/mcL (4.63-6.08); Red Cell Distribution Width 12.7 % (11.5-14.5)
[2024-09-13 08:42] LABS: INR 1.8 (0.9-1.1); Partial Thromboplastin Time 30.1 sec (20.0-37.0); Prothrombin Time 21.9 sec (11.9-14.5)
[2024-09-13] MEDS: HYDROCORTISONE SOD SUCC 100 MG VIAL IV ONE (08:47)
[2024-09-13 08:56] LABS: ALT/SGPT 8 U/L (<40); AST/SGOT 26 U/L (<40); Albumin 4.6 gm/dL (3.2-5.2); Albumin/Globulin Ratio 1.5 (1.0-2.3); Alkaline Phosphatase 68 U/L (39-117); Bilirubin,Total 0.5 mg/dL (0.1-1.0); Blood Urea Nitrogen 18 mg/dL (8-23); Calcium 9.9 mg/dL (8.6-10.4); Carbon Dioxide 22 mmol/L (22-30); Chloride 103 mmol/L (96-108); Glomerular Filtration Rate 43; Glucose 95 mg/dL (70-105); Potassium 3.8 mmol/L (3.3-5.1); Sodium 139 mmol/L (133-145)
[2024-09-13] MEDS: 0.9 % SODIUM CHLORIDE 1,000 ML IV ONE (09:42)
[2024-09-13 10:16] LABS: Appearance,Urine Clear (Clear); Bilirubin,Urine Negative (Negative); Color,Urine Yellow; Glucose,Urine (UA) Negative (Negative); Ketones,Urine Negative (Negative); Leukocyte Esterase,Urine Negative /uL (Negative); Mucus,Urine Mod /hpf; Nitrate,Urine Negative (Negative); PH,Urine 5.5 (5.0-9.0); Protein,Urine Negative (Negative); Specific Gravity,Urine 1.015 (1.000-1.035); Urine Blood Small ery/mcL (Negative); Urine RBC 9 /hpf (0-3); Urine Squamous Epithelial Cell 0 /hpf (0-4); Urine WBC 0 /hpf (0-4); Urobilinogen,Urine Normal
[2024-09-13] MEDS: ASPIRIN 325 MG ENTERIC COATED TABLET PO ONE (10:26)
[2024-09-13] MEDS: LACTATED RINGERS 1,000 ML IV ONE (10:31)
[2024-09-13] MEDS: ASPIRIN 81 MG TAB.CHEW CHEWED ONE (10:33)
[2024-09-13] MEDS: OSELTAMIVIR PHOSPHATE 75 MG CAPSULE PO ONE (10:33)
[2024-09-13] MEDS ORDERED: POLYETHYLENE GLYCOL 3350 17 GM PACKET PO PRN (12:13)
[2024-09-13] MEDS ORDERED: POTASSIUM CHLORIDE 40 MEQ in DEXTROSE 5% IN WATER 500 ML IV PRN (12:13)
[2024-09-13] MEDS ORDERED: SENNOSIDES 1 TABLET PO PRN (12:13)
[2024-09-13] MEDS ORDERED: ONDANSETRON 4 MG/2 ML VIAL IV PRN (12:13)
[2024-09-13] MEDS ORDERED: MAGNESIUM SULFATE 2 GM/50 ML BAG IV PRN (12:13)
[2024-09-13] MEDS ORDERED: IPRATROPIUM/ALBUTEROL 3 ML AMPUL.NEB NEB PRN (12:13)
[2024-09-13] MEDS ORDERED: POTASSIUM CHLORIDE 20 MEQ TABLET PO PRN ×2 (12:13)
[2024-09-13] MEDS ORDERED: METOCLOPRAMIDE 10 MG/2 ML VIAL IV PRN (12:13)
[2024-09-13] MEDS: ENOXAPARIN 80 MG/0.8 ML SYRINGE SQ ONE (12:31)
[2024-09-13] MEDS: DEXTROSE 5%-1/2NS 1,000 ML IV SCH (12:37)
[2024-09-13] MEDS: ACETAMINOPHEN 325 MG TABLET PO PRN (14:08)
[2024-09-13] MEDS: WARFARIN 5 MG TABLET PO ONE (14:08)
[2024-09-13] MEDS: HYDROCORTISONE SOD SUCC 100 MG VIAL IV SCH ×2 (14:09→17:39)
[2024-09-13] MEDS ORDERED: ACETAMINOPHEN 650 MG/65 ML BAG IV PRN (14:22)
[2024-09-13] MEDS: OSELTAMIVIR PHOSPHATE 30 MG CAPSULE PO SCH (21:20)
[2024-09-13] MEDS: FAMOTIDINE/PF 20 MG/2 ML VIAL IV SCH (21:20)
[2024-09-13] MEDS: DOCUSATE SODIUM 100 MG CAPSULE PO SCH (21:20)
[2024-09-13] MEDS: SIMVASTATIN 20 MG TABLET PO SCH (21:20)
[2024-09-14 06:02] LABS: Basophils # (Auto) 0.01 K/mcL (0.00-0.30); Basophils % (Auto) 0.1 % (0.0-2.0); Eosinophils # (Auto) 0.03 K/mcL (0.00-0.70); Eosinophils % (Auto) 0.4 % (0.0-7.0); Hematocrit 38.2 % (40.1-51.0); Lymphocytes # (Auto) 1.11 K/mcL (1.50-4.80); Lymphocytes % (Auto) 14.3 % (15.5-49.0); Mean Cell Volume 91.8 fL (80.0-100.0); Mean Platelet Volume 9.4 fL (8.8-12.5); Monocytes # (Auto) 0.86 K/mcL (0.10-0.90); Monocytes % (Auto) 11.1 % (1.0-12.0); Neutrophils % (Auto) 73.8 % (38.0-78.0); Platelet Count 199 K/mcL (140-440); RBC 4.16 M/mcL (4.63-6.08); Red Cell Distribution Width 12.7 % (11.5-14.5); WBC 7.8 K/mcL (4.5-11.0)
[2024-09-14 06:23] LABS: ALT/SGPT 14 U/L (<40); AST/SGOT 66 U/L (<40); Albumin 3.9 gm/dL (3.2-5.2); Albumin/Globulin Ratio 1.6 (1.0-2.3); Alkaline Phosphatase 52 U/L (39-117); Bilirubin,Direct < 0.2 mg/dL (0-0.3); Bilirubin,Total 0.3 mg/dL (0.1-1.0); Blood Urea Nitrogen 16 mg/dL (8-23); Calcium 8.7 mg/dL (8.6-10.4); Carbon Dioxide 22 mmol/L (22-30); Chloride 105 mmol/L (96-108); Globulin 2.5 gm/dL (2.2-3.7); Glomerular Filtration Rate 71; Glucose 135 mg/dL (70-105); Lactate Dehydrogenase 335 U/L (135-225); Phosphorous 3.2 mg/dL (2.5-4.5); Potassium 3.6 mmol/L (3.3-5.1); Sodium 137 mmol/L (133-145); Triglycerides 114 mg/dL (<150); Uric Acid 7.1 mg/dL (2.5-8.0)
[2024-09-14 06:38] LABS: INR 1.7 (0.9-1.1); Prothrombin Time 21.3 sec (11.9-14.5)
[2024-09-14] MEDS: LEVOTHYROXINE 150 MCG TABLET PO SCH (08:24)
[2024-09-14] MEDS: OMEPRAZOLE 20 MG CAPSULE PO SCH (08:24)
[2024-09-14] MEDS: ASPIRIN 300 MG RECTAL SUPPOSITORY PR SCH (10:43)
[2024-09-14] MEDS: ASPIRIN 81 MG TAB.CHEW CHEWED SCH (10:50)
[2024-09-14] MEDS: WARFARIN 3 MG TABLET PO ONE (13:06)
[2024-09-14] MEDS: OSELTAMIVIR PHOSPHATE 30 MG CAPSULE PO ONE (13:06)
[2024-09-14] MEDS: HYDROCORTISONE SOD SUCC 100 MG VIAL IV SCH (13:06)
[2024-09-14] MEDS: 0.9 % SODIUM CHLORIDE 10 ML SYRINGE IV SCH (13:07)
[2024-09-14] MEDS: OSELTAMIVIR PHOSPHATE 30 MG CAPSULE PO SCH (20:56)
[2024-09-14] MEDS: HALOPERIDOL LACTATE 5 MG/ML VIAL IV PRN (22:27)
[2024-09-14] MEDS: HALOPERIDOL LACTATE 5 MG/ML VIAL ONE (22:29)
[2024-09-15 06:03] LABS: Basophils # (Auto) 0 K/mcL (0.00-0.30); Basophils % (Auto) 0 % (0.0-2.0); Eosinophils # (Auto) 0.13 K/mcL (0.00-0.70); Eosinophils % (Auto) 1.4 % (0.0-7.0); Hemoglobin 13.5 g/dL (13.7-17.5); Lymphocytes # (Auto) 1.47 K/mcL (1.50-4.80); Lymphocytes % (Auto) 16.3 % (15.5-49.0); Mean Cell Volume 89.4 fL (80.0-100.0); Mean Corpuscular HGB Conc 34.6 g/dL (31.0-36.0); Mean Platelet Volume 9.4 fL (8.8-12.5); Monocytes # (Auto) 0.86 K/mcL (0.10-0.90); Monocytes % (Auto) 9.6 % (1.0-12.0); Neutrophils % (Auto) 72.5 % (38.0-78.0); Platelet Count 230 K/mcL (140-440); RBC 4.36 M/mcL (4.63-6.08); Red Cell Distribution Width 12.6 % (11.5-14.5)
[2024-09-15 06:16] LABS: Prothrombin Time 24.4 sec (11.9-14.5)
[2024-09-15 06:29] LABS: ALT/SGPT 27 U/L (<40); AST/SGOT 106 U/L (<40); Albumin 4.3 gm/dL (3.2-5.2); Albumin/Globulin Ratio 1.6 (1.0-2.3); Alkaline Phosphatase 55 U/L (39-117); Bilirubin,Direct < 0.2 mg/dL (0-0.3); Bilirubin,Total 0.4 mg/dL (0.1-1.0); Blood Urea Nitrogen 17 mg/dL (8-23); Calcium 9.3 mg/dL (8.6-10.4); Carbon Dioxide 24 mmol/L (22-30); Chloride 101 mmol/L (96-108); Globulin 2.7 gm/dL (2.2-3.7); Glomerular Filtration Rate 80; Glucose 105 mg/dL (70-105); Lactate Dehydrogenase 393 U/L (135-225); Phosphorous 2.7 mg/dL (2.5-4.5); Potassium 3.6 mmol/L (3.3-5.1); Sodium 136 mmol/L (133-145); Triglycerides 162 mg/dL (<150); Uric Acid 6.2 mg/dL (2.5-8.0)
[2024-09-15] MEDS: OSELTAMIVIR PHOSPHATE 75 MG CAPSULE PO SCH (09:01)
[2024-09-15 12:09] VITALS: TEMP 98.5; O2SAT 98
[2024-09-15] MEDS ORDERED: WARFARIN 3 MG TABLET PO ONE (14:00)
[2024-09-15] MEDS ORDERED: HYDROCORTISONE 10 MG TABLET PO SCH (15:00)
== END 2024-09-15 12:05 | disposition home or self-care (01) | DRG 152 ==
LOC: ED 08:03 → ICU 12:05 → MEDSUR 09-14 13:40
PROVIDERS: ADMIT Internal Medicine; ATTEND Internal Medicine